=== PATIENT | male | born 1985 | race Caucasian/White ===

== ENCOUNTER 2020-06-11 00:05 | Inpatient (IN) | payer OTHER, SELFPAY ==
[~2020-06-11] VITALS: Ht 170.2 cm; Wt 68.0 kg
[2020-06-11 00:18] VITALS: BP 140/89
--- NOTE | 2020-06-11 00:20 | NUR ---
PT TAKEN TO BED 07 VIA [facility]. [place] [employer] AT BEDSIDE.
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
--- NOTE | 2020-06-11 01:00 | NUR ---
PT GIVEN A SANDWHICH AND JUICE
--- NOTE | 2020-06-11 01:15 | NUR ---
LAB AT BEDSIDE
--- NOTE | 2020-06-11 01:25 | NUR ---
UA COLLECTED AND GIVEN TO LAB
--- NOTE | 2020-06-11 01:30 | NUR ---
PT TAKEN TO CT VIA [facility]
[2020-06-11 01:39] LABS: BASOPHILS # (AUTO) 0.1 K/uL (0.00-0.22); BASOPHILS % (AUTO) 0.9 % (0.0-2.0); EOSINOPHILS # (AUTO) 0.3 K/uL (0-0.4); EOSINOPHILS % (AUTO) 2.5 % (0.0-4.0); HEMATOCRIT 42.1 % (36-52); HEMOGLOBIN 14.3 g/dL (12.0-18.0); LYMPHOCYTES # (AUTO) 1.4 K/uL (2.0-11.5); LYMPHOCYTES % (AUTO) 12.1 % (20.5-51.1); MEAN CORPUSCULAR HEMOGLOBIN 30 pg (27-31); MEAN CORPUSCULAR HGB CONC 34 g/dL (33-37); MEAN CORPUSCULAR VOLUME 87.2 fL (80-94); MONOCYTES # (AUTO) 1.1 K/uL (0.8-1.0); MONOCYTES % (AUTO) 9.6 % (1.7-9.3); NEUTROPHILS # (AUTO) 8.9 K/uL (1.8-7.7); NEUTROPHILS % (AUTO) 74.9 % (42.2-75.2); PLATELET COUNT (AUTO) 338 K/uL (140-450); RED BLOOD CELL COUNT(AUTO) 4.83 MIL/uL (4.20-6.10); RED CELL DISTRIBUTION WIDTH 14.7 % (11.6-13.7); WHITE BLOOD COUNT (AUTO) 11.9 K/uL (4.8-10.8)
--- NOTE | 2020-06-11 01:40 | NUR ---
CT RETURNED FROM CT VIA [facility]
[2020-06-11 01:41] LABS: APPEARANCE,URINE CLEAR (CLEAR); BILIRUBIN,URINE 1+ (NEGATIVE); BLOOD, URINE TRACE-L (NEGATIVE); COLOR,URINE YELLOW (YELLOW); LEUKOCYTE ESTERASE ,URINE NEGATIVE (NEGATIVE); NITRITE, URINE NEGATIVE (NEGATIVE); UGLUCOSE NEGATIVE (NEGATIVE)
--- NOTE | 2020-06-11 01:41 | NUR ---
EKG AT BEDSIDE
[2020-06-11 01:56] LABS: ALBUMIN 3.2 g/dL (3.4-5.0); ANION GAP 13.2 (8-16); ASPARTATE AMINOTRANSFERASE 30 U/L (15-37); CARBON DIOXIDE 29.5 mmol/L (21-32); CHLORIDE 103 mmol/L (98-107); CREATININE 0.8 mg/dL (0.6-1.3); GFR ARICAN-AMERICAN 141 mL/min (>90); GLUCOSE 120 mg/dL (74-106); POTASSIUM 3.7 mmol/L (3.5-5.1); SODIUM SERUM 142 mmol/L (136-145); TOTAL BILIRUBIN 0.3 mg/dL (0.0-1.0); UREA NITROGEN, BLOOD 14 mg/dL (7-18)
[2020-06-11 02:00] LABS: ACETAMINOPHEN < 0.5 ug/ml (10-30); SALICYLATE < 2.8 mg/dL (2.8-20.0)
[2020-06-11 02:03] LABS: BARBITURATE, URINE NEGATIVE ng/ml (NEG <=200); BENZODIAZEPINE, URINE NEGATIVE ng/mL (NEG <=200); CANNABINOID, URINE POSITIVE ng/mL (NEG <=50); COCAINE, URINE NEGATIVE ng/mL (NEG <=300); OPIATE, URINE NEGATIVE ng/mL (NEG <=2000); PHENCYCLIDINE SCREEN,URINE NEGATIVE ng/mL (NEG <=25)
[2020-06-11 02:09] LABS: WBC,URINE 0-5 /HPF (0-5)
--- NOTE | 2020-06-11 02:36 | NUR ---
[place] swab collected and sent to lab.
[2020-06-11] MEDS ORDERED: VANCOMYCIN 1,000 MG in DEXTROSE 5% 250 ML IV ONE (03:05)
[2020-06-11] MEDS ORDERED: PIPERACILLIN/TAZOBACTAM 3.375 GM in DEXTROSE 5% 50 ML IV ONE (03:05)
--- NOTE | 2020-06-11 03:15 | NUR ---
LEFT FOOT WOUND DISCOVERED WHEN REMOVING PTS SHOES. MAGGOTS INFESTING WOUND. ERMD MADE AWARE. FOOT CLEANED AND MAGGOTS REMOVED.
[2020-06-11] MEDS ORDERED: VANCOMYCIN PER PHARMACY MC PRN (03:30)
[2020-06-11] MEDS ORDERED: ONDANSETRON 4 MG/2 ML VIAL IVP PRN (03:30)
[2020-06-11] MEDS ORDERED: ACETAMINOPHEN 325 MG TAB PO PRN (03:30)
--- NOTE | 2020-06-11 03:30 | NUR ---
WOUND PHOTOS TAKEN
--- NOTE | 2020-06-11 03:40 | NUR ---
PT CLEANED AND CHANGED INTO A GOWN AND DIAPER.
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
--- NOTE | 2020-06-11 03:45 | NUR ---
RAD AT BEDSIDE
[2020-06-11] MEDS ORDERED: PIPERACILLIN/TAZOBACTAM 3.375 GM VIAL IV ONE (04:03)
[2020-06-11] MEDS ORDERED: VANCOMYCIN 1,000 MG VIAL ONE (04:09)
--- NOTE | 2020-06-11 04:24 | NUR ---
REPORT GIVEN TO BRYN OCAMPO IN [facility]ST UNIT.
--- NOTE | 2020-06-11 04:37 | NUR ---
Patient will be admitted to [facility]. Admited to MED SURG. Will go to room 109A. Belongings list completed. Report to BRYN OCAMPO.
--- NOTE | 2020-06-11 04:45 | NUR ---
PT TRANSFERRED FROM [facility] CAN TRANSFER SELF TO BED. PT IS AAOX4. RESPIRATIONS ARE EQUAL AND UNLABORED ON ROOM AIR. LUNG SOUNDS ARE CLEAR. ABD IS SOFT. BOWEL SOUNDS ARE ACTIVEX4. LBM 06/10. PT IS INCONTINENT. USES WHEELCHAIR BUT CAN MOVE ALL EXTREMITIES. PT WAS BROUGHT TO ER BY PD AND PLACED ON 5150 FOR GRAVELY DISABLED. PT DENIES ANY SI. DX CELLULITIS OF L FOOT. INITIALLY IN ER L FOOT HAD MX MAGGOTS. WOUND NOW CLEAN OPEN TO AIR. WOUND BED IS RED AND YELLOW WITH MINIMAL PURULENT DRAINAGE. L FOOT EDEMA PITTING +2 FROM TOES TO ANKLE. PER PT DENIES ANY INJURY BUT STATES, "I DID NOT REMOVE MY SHOES FOR A LONG TIME" MRSA SWAB OBTAINED. PT WAS CLEANED. IV ON L FA 20G VANCO CURRENTLY INFUSING PER ORDERS. ADMISSION QUESTIONS DONE BUT WAS LIMITED D/T PT MENTAL. PER REPORT WHEN PT IS D/C CALL PD AT [phone]. POC DISCUSSED WITH PT. ORIENTED TO ROOM AND STAFF. PT VERBALIZED UNDERSTANDING. WHEELCHAIR WITH SECURITY. WILL CONTINUE TO MONITOR.
[2020-06-11 05:00] VITALS: BP 149/70
--- NOTE | 2020-06-11 05:15 | NUR ---
PT IS SITTING UP EATING PUDDING AND DRINKING ORANGE JUICE. ALL NEEDS MET.
[2020-06-11] MEDS ORDERED: cefTRIAXone 1,000 MG VIAL ONE (05:58)
--- NOTE | 2020-06-11 07:30 | NUR ---
GAVE BEDSIDE REPORT TO DAY RN. PT ENDORSED IN STABLE CONDITION.
--- NOTE | 2020-06-11 07:35 | NUR ---
RECEIVED BEDSIDE REPORT FROM NIGHTSHIFT NURSE. PT RESTING IN BED. ABLE TO MAKE NEEDS KNOWN. RESPIRATIONS EVEN AND UNLABORED WITH NO SOB OR RESPIRATORY DISTRESS. SKIN WARM AND DRY TO TOUCH. IV SITE IN LFA 20G IS CLEAN, DRY, AND INTACT.
[2020-06-11 08:00] VITALS: BP 140/72
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
[2020-06-11] MEDS: ENOXAPARIN 40 MG/0.4 ML SYR SUBQ SCH (09:00)
[2020-06-11] MEDS ORDERED: VANCOMYCIN 1GM/DEXT 5% PREMIX 200 ML IV SCH (09:00)
--- NOTE | 2020-06-11 09:20 | NUR ---
DISCHARGE PLANNING: THIS IS A 35 Y/O MALE PATIENT FROM HOME, WHO WAS BROUGHT IN BY PD ON A 5150 HOLD. NO SIGNIFICANT PAST MEDICAL HISTORY. INITIAL DIAGNOSIS OF LEG CELLULITIS, 5150 HOLD. CURRENT LABS INCLUDE WBC 11.9, H/H 14.3/42.1, NA/K 142/3.7, BUN/CREA 14/0.8. RAPID COVID TEST NEGATIVE. UDS SHOWED POSITIVE FOR CANNABINOIDS. FOOT X RAY SHOWED MEDIAL TUFT FRACURE OF THE 1ST DISTAL PHALANX WITH ADJACENT TISSUE DEFORMITY. HEAD CT NEGATIVE. NOT SEEN BY ATTENDING YET. TENTATIVE DC PLAN PENDING ON PATIENT'S RESPONSE TO TREATMENT. Addendum: 06/11/20 at 1058 by Shua Ivory RECEIVED A CALL FROM ERVIN [phone] OF [facility] OFFICE, STATING THAT PATIENT SHOULD NOT BE PLACED ON A 5150HOLD DUE TO PATIENT IS AN LPS CONSERVATEE AND THEY ARE THE ONLY ONES WHO CAN SAY IF THE PATIENT NEEDS TO BE ADMITTED OR NOT. SHE ALSO MENTIONED THAT THE PATIENT AWOL FROM [facility] 3 WEEKS AGO AND WANTS THE PATIENT TO GO BACK THERE. SHE REQUESTED TO BE TRANSFERRED TO SW. MATA OF [facility] MADE AWARE. SHE PROVIDED ME WITH TRANSPORT AUTH [id number]. Addendum: 06/11/20 at 1243 by Suha Ivory CM RECEIVED A CALL FROM ROGER CHARGE NURSE STATING THE PER DR. SON, PATIENT IS MEDICALLY CLEARED. GAURI BOWER AWAKE. RECEIVED REPORT FROM GAURI RODRIGUEZ STATING THAT PER [facility], PATIENT IS NOT FROM THERE BUT [facility]. GAURI RODRIGUEZ CONTACTED [facility] TRANSFER AND FAXED CLINICALS. RECEIVED A CALL FROM BETTY YADKIN [facility] TRANSFER [facility], TO GATHER MORE INFORMATION. PROVIDED ALL INFORMATION NEEDED. PROVIDED HER OF [employer] PHONE NUMBER TO FOLLOW UP. SHE ALSO STATED THAT SHE WILL REACH OUT TO PUBLIC GUARDIAN'S OFFICE. T[facility] [employer] MADE AWARE. Addendum: 06/11/20 at 1349 by Crystal Jarvis CM [place]: SET UP WILL CALL TRANSPORTATION WITH [facility] [phone]. Addendum: 06/11/20 at 1354 by Crystal Jarvis DC GRAB JACK MAN: NOTIFIED [employer] THAT TRANSPORTATION IS ON WILL CALL. Addendum: 06/12/20 at 0940 by Yi Hare DC PLANNING: CALLED [facility] TRANSFER [place] [phone] SPOKE WITH WYATT STATED THEY HAVE NO BED ,ON LEVLE 2 AND ONCE THEY HAVE A BED WILL CALL BACK. PROVIDE MY NUMBER AND THE UNIT NUMBER CM TO FOLLOW. Addendum: 06/14/20 at 0918 by Suha Ivory CONTACTED [facility], ABLE TO SPEAK TO VICK. PER VICK, THEY ARE STILL ON LEVEL 2 AND NO BEDS AVAILABLE AT THIS TIME. WILL FOLLOW UP. Addendum: 06/14/20 at 0925 by Rodriguez Orr SS GAURI CONTACTED ADEBAYO MCPHERSON FROM [facility] [phone] REGARDING DISCHARGE PLAN FOR PATIENT. PER ADEBAYO, PATIENT NEEDS TO RETURN TO [facility] [place]. GAURI INFORMED ADEBAYO THAT THERE HAS BEEN NO BED AVAILABILITY FOR PATIENT AT [facility] SINCE SUNDAY. ADEBAYO STATED THAT PATIENT CAN BE DISCHARGED TO [facility]. GAURI WILL FOLLOW UP. Addendum: 06/14/20 at 1054 by Suha Ivoyr CONTACTED [facility] AT [phone], ABLE TO SPEAK TO DIANA TURF FARMER. PER DIANA THEY DO NOT HAVE ANY MED SURG BEDS AT THIS TIME AND IS SHORT STAFF FOR [facility]. HE STATED TO CHECK BACK AGAIN TOMORROW. ALANNA ORTIZ CAN SEND REFERRAL TO [phone]. INQUIRY SENT TO THE PROVIDED FAX NUMBER. Addendum: 06/14/20 at 1133 by Suha Ivory CM ADOLFO OF [facility] MADE AWARE THAT [facility] AND [facility] DOES NOT HAVE ANY BED AVAILABILITY AT THIS TIME. I ALSO INFORMED HER THAT THESE ARE THE ONLY 2 FACILITIES THAT THE CONSERVATOR WANTS THE PATIENT TO GO. INFORMED ADLOFO THAT WE DO NOT WANT TO BE STUCK WITH THE PATIENT BECAUSE OF PLACEMENT. I ALSO INFORMED HER THAT ALANNA FIORE 5150 IS NOT VALID. SHE STATED SHE WILL REACH OUT TO DR. SON FOR PSYCHE CONSULT AND WILL GO FROM THERE. GAURI RODRIGUEZ MADE AWARE. Addendum: 06/14/20 at 1134 by Suha Ivory CM CONTACTED ADEBAYO [facility] OFFICE, NO ANSWER. LEFT MESSAGE. Addendum: 06/14/20 at 1152 by Suha Ivory CM CONTACTED [facility] AT [phone], ABLE TO SPEAK JATIN. PER JATIN, NO MALE BEDS AT THIS TIME. CONTACTED [facility] AT [phone], ABLE TO SPEAK TO LANNY. NO MALE BEDS AVAILABLE AT THIS TIME. Addendum: 06/14/20 at 1337 by Yi Hare CM DC PLANNING: SPOKE WITH AMERICA MONTANO PSYCH EVANGELIST AND NOTIFIED DR VERA. DR VERA WILL SEE PATIENT TONIGHT. TO FOLLOW Addendum: 06/15/20 at 1240 by Suha Ivory CM PER ADOLFO [facility], PATIENT WAS AT [facility] [phone] BEFORE. Addendum: 06/16/20 at 1641 by Suha Ivory CM PER DR. VERA, HE WILL BE HERE TONIGHT AFTER CLINIC TO SEE THE PATIENT. PRIMARY RN AND TURF FARMER MADE AWARE. Addendum: 06/17/20 at 1215 by Suha Ivory CONTACTED [facility] AT [phone], ABLE TO SPEAK TO VIDYA ROSADO. SHE CONFIRMED THAT PATIENT WAS WITH THEM UNTIL MAY 14, 2020 AND WAS TRANSFERRED TO [facility]. PER VIDYA THEY ARE NOT ABLE TO ACCEPT PATIENT BACK DUE TO HIS BEHAVIOR IS NOT APPROPRIATE FOR THEM. Addendum: 06/17/20 at 1308 by Rodriguez Orr SS GAURI CONTACTED JIMMY FROM [facility] [phone]. PER PSYCH CONSULT, 7430 IS NOT NECESSARY DUE TO LPS CONSERVATORSHIP. GAURI FAXED CLINICAL PACKET TO JIMMY [phone]. GAURI CONTACTED SEAMUS FROM [facility] [phone] WHO REFERRED SW TO JIMMY [phone] BUT VOICEMAIL BOX IS NOT SET UP. FAX FACE SHEET STATED THAT IT WAS RECEIVED AT 1244. Addendum: 06/17/20 at 1310 by Rodriguez Orr JIMMY RECEIVED CLINICALS AND CONTACTED TO INFORM THAT THEY WERE RECEIVED. SHE STATED SHE WILL INFORM IF PATIENT IS ACCEPTED. Addendum: 06/18/20 at 1025 by Rodriguez Orr GAURI CONTACTED JIMMY FROM [facility] [phone] REGARDING PROGRESS OF PSYCH PLACEMENT. JIMMY HAD ADDITIONAL QUESTIONS REGARDING PATIENT. GAURI CONTACTED PUBLIC GUARDIAN AND SPOKE TO ABRAN [phone]. PER ABRAN, PATIENT WAS AT [facility] SNF - LOCKED FACILITY PRIOR TO [facility]. ABRAN STATED THAT PATIENT WAS IN A BOARD AND CARE PRIOR TO SNF. GAURI CONTACTED JIMMY FROM [facility] TO INFORM HER OF THIS INFORMATION. JIMMY STATED THAT [facility] WAS REVIEWING PATIENT'S CHART, BUT DUE TO PATIENT'S INSURANCE, HIS DISCHARGE WOULD BE DIFFICULT BECAUSE HE WOULD BE IN [facility]. JIMMY STATED THAT SHE WILL CONTINUE TO SEEK PLACEMENT FOR PATIENT IN [facility]. Addendum: 06/18/20 at 1226 by Suha Ivory CM CONTACTED [facility] AT [phone], ABLE TO SPEAK TO MONROE ALONSO. SHE STATED SHE WILL TRANSFER ME TO THE [facility]URF [facility]ER. PER JOSE ANTONIO [facility], THEY ARE AT [facility] AT THIS TIME. Addendum: 06/21/20 at 0844 by Rodriguez Orr SS GUARI CONTACTED [facility] [phone] AND SPOKE TO NIELS REGARDING LACK OF DOCUMENTATION FROM [facility]. PER NIELS, SHE WILL CONSULT WITH JIMMY REGARDING LACK OF DOCUMENTATION AND PROGRESS OF PSYCH PLACEMENT SEARCH. NIELS STATED SHE WILL FOLLOW UP WITH GAURI. Addendum: 06/21/20 at 1149 by Suha Ivory CM RECEIVED A MESSAGE FROM LANDY OF [facility], INQUIRING IF WE ARE STILL SEEKING PLACEMENT. RETURNED HER CALL. PER LANDY, THEY REMAIN ST [facility] AT THIS TIME AND WILL CALL ME BACK AGAIN AT 1300 TO CARLIN UPDATE ON BED AVAILABILITY. Addendum: 06/21/20 at 1239 by Rodriguez Orr SS GAURI WAS CONTACTED BY ADOLFO FROM [facility]. PER ADOLFO, SHE SPOKE TO PUBLIC GUARDIAN - ADEBAYO MCPHERSON. PER ADEBAYO, PATIENT CAN ONLY BE TRANSFERRED TO [facility], [facility], AND [facility]. GAURI CONTACTED [facility] AND INFORMED ROBERTA. MARQUEZ STATED THAT THE FOLLOWING FACILITIES HAVE ALL HAVE HAD LIMITED BED AVAILABILITY BUT SHE WILL CONTINUE TO SEEK PLACEMENT FOR PATIENT. GAURI WILL FOLLOW UP NEEDED. Addendum: 06/22/20 at 1024 by Crystal Jarvis CM [place]: FAXED PATIENTS CLINICALS TO [facility] Addendum: 06/22/20 at 1051 by Suha Ivory 0915: CONTACTED [facility] AT [phone] TO FOLLOW UP WITH PLACEMENT AND NOTES, NO ANSWER, WENT TO JIMMY'S VOICEMAIL. HOWEVER, UNABLE TO LEAVE MESSAGE, [email or web address] IS FULL. CONTACTED [facility] AT [phone], ABLE TO SPEAK TO SHALINI. PER SHALINI THEY ARE STILL AT [place] AND NO BED AVAILABLE YET. PER SHALINI SHE WILL CALL ME BACK AT 1100 FOR UPDATES. CONTACTED [facility] AT [phone], ABLE TO SPEAK TO RAFY. NO BED AVAILABLE YET AT THIS TIME. PER JOHN OF [facility] AT [phone], THEY DO NOT KEEP PACKET. WE HAVE TO SEND IT ON A DAILY BASIS TO [phone]. NO BEDS AVAILABLE YET OF THIS TIME. Addendum: 06/22/20 at 1325 by Rodriguez MORALES SW CONTACTED [facility] REGARDING LACK OF DOCUMENTATION. GAURI LEFT VM WITH JIMMY WITH [facility] [phone]. Addendum: 06/23/20 at 0844 by Suha Ivory RECEIVED A CALL FROM CHARGE NURSE ROGER, STATING THAT [facility] INFORMED THEM OF BED AVAILABILITY. CONTACTED [facility] [phone], ABLE TO SPEAK TO JOAQUÍN. PER JOAQUÍN THEY HAVE BED AVAILABILITY AND JUST WAITING FOR THEIR DOC TO CALL THEM BACK TO ACCEPT AND HAVE HIM CONNECT WITH DR. ISAAC AND WILL GO FROM THERE. Addendum: 06/23/20 at 0848 by Rodriguez Orr GAURI CONTACTED [facility] AND SPOKE TO JAIDEN. PER JAIDEN, BED IS STILL AVAILABLE, BUT SHE IS WAITING ON DR. WHITLOCK TO SPEAK TO DR. ISAAC ON WHETHER PATIENT WILL BE ACCEPTED. GAURI WILL FOLLOW UP NEEDED. Addendum: 06/23/20 at 1135 by Rodriguez Orr GAURI RECEIVED A PHONE CALL FROM BREEZY FROM [facility] [phone]. BREEZY REQUESTED CLINICAL PACKET TO BE SENT TO [facility] AND PROVIDED FAX # [phone]. GAURI RECEIVED PHONE CALL FROM JIMMY FROM [facility]. PER JIMMY, SHE WILL CONTACT [facility] REGARDING PSYCH PLACEMENT. Addendum: 06/23/20 at 1354 by Suha Ivory CM RECEIVED THE SMART MEDICAL CLEARANCE FORM FROM [facility]. FILLED IT OUT, HOWEVER NEEDING SIGNATURE FROM DR. ISAAC. CONTACTED [facility] IF I WILL BE ABLE TO SIGN THE FORM, ABLE TO SPEAK TO BREEZY. PER BREEZY, IT HAS TO BE THE MD THAT NEEDS TO SIGN THE FORM. INFORMED HIM THAT THE ATTENDING LEFT ALREADY FOR THE DAY AND NO DOCTOR IS ABLE TO SIGN IT. DR. ISAAC MADE AWARE. HE STATED HE WILL TRY TO COME BACK TO SIGN THE FORM. WILL FOLLOW UP. Addendum: 06/23/20 at 1402 by Suha Ivory CM PER DR. ISAAC TO FAX THE FORM TO [phone], SO HE CAN SIGN IT AND SEND IT BACK. SMART FORM FAXED TO THE PROVIDED NUMBER. WILL FOLLOW UP. Addendum: 06/23/20 at 1420 by Suha Ivory RECEIVED THE SIGNED SMART FORM BACK FROM DR. ISAAC. SMART FORM SENT TO [facility] AT [phone]. WILL FOLLOW UP. Addendum: 06/23/20 at 1617 by Rodriguez Orr SS GAURI FAXED CONSERVATORSHIP PAPERWORK TO [facility] [phone]. GAURI CONTACTED [facility] AND SPOKE TO NIELS WHO STATED SHE RECEIVED CONSERVZOGOtennis DOCUMENTS. NIELS STATED SHE WOULD CONTACT NURSING STATION WITH AVAILABLE BED AND ACCEPTING PHYSICIAN. GAURI PROVIDED NURSING STATION PHONE NUMBER [phone]. Addendum: 06/23/20 at 1625 by Crystal Jarvis CM [place]: TRANSPORTATION AUTH [id number] Addendum: 06/23/20 at 1632 by Crystal Jarvis CM [place]: SET UP TRANSPORTATION ON WILL CALL WITH EDUARD [phone] Addendum: 06/24/20 at 0916 by Suha Ivory CM CONTACTED [facility], ABLE TO SPEAK TO NIELS. PER NIELS, THEY CALLED LAST NIGHT TO FOLLOW UP IF THE PATIENT IS AMBULATORY AND THE NURSE TOLD THEM THAT SHE IS UNABLE TO ASSESS THE PATIENT DUE TO PATIENT WAS SEXUALLY PROVOCATIVE LAST NIGHT. SHE STATED THAT THEIR CRITERIA TO ADMIT THE PATIENT IS PATIENT SHOULD BE AMBULATORY WITH NO ASSISTIVE DEVICE. CONTACTED [facility] AT [phone] TO FOLLOW UP, NO ANSWER. WILL FOLLOW UP. CONTACTED [facility], ABLE TO SPEAK TO SKY. PER SKY, THEY NEED THE NEW PACKET AGAIN. UPDATED CLINICALS SENT TO [phone]. WILL FOLLOW UP. DR. ISAAC MADE AWARE AND I REQUESTED FOR PT EVALUATION. PER DR. ISAAC OK TO PUT THE ORDER IN. PT EVAL ORDER TRANSCRIBED. ADOLFO OF [facility] MADE AWARE. SHE STATED THEY WILL PROVIDE US WITH ADMIN DAYS. CONTACTED [facility]. PER MADISON, THEY ARE NOT REVIEWING ANY REFERRALS AT THIS TIME BECAUSE THEY ARE SATURATED. Addendum: 06/24/20 at 0920 by Rodriguez Orr SS GAURI CONTACTED [facility]DEBA[facility]O MCPHERSON [facility] [phone] REGARDING DISCHARGE PLAN. GAURI LEFT VM TO ADEBAYO. GAURI WILL FOLLOW UP. Addendum: 06/24/20 at 1213 by Crystal Jarvis CM DC GRAB JACK MAN: FAXED PATIENTS CLINICALS TO [facility], [facility], AND [facility]. Addendum: 06/24/20 at 1500 by Suha Ivory CM LATE ENTRY: CONTACTED ADEBAYO FROM PUBLIC [facility] OFFICE, ABLE TO SPEAK TO BETHANY. PER BETHANY FIORE IS NOT AVAILABLE AT THIS TIME BUT CAN RELAY THE MESSAGE. INFORMED BETHANY THAT WE EXHAUSTED ALL THE FACILITIES THAT ADEBAYO PROVIDED US AND I WANT TO KNOW IF SHE HAS ANY OTHER RECOMMENDATIONS FOR PLACEMENT. ADOLFO OF [facility] MADE AWARE THAT PT SAW THE PATIENT AND IS MODERATE TO MAX ASSIST FROM BED TO SITTING AND ZERO AMBULATION. WE DISCUSSED OTHER OPTIONS LIKE SNF LOCKED UNIT. SHE STATED WE CAN SEND REFERRAL TO [facility], [facility] AND [facility]. PER TOMASA OF [facility], PATIENT IS TOO YOUNG FOR THEIR LOCKED UNIT. BUT WILL HAVE HER DON REVIEW THE REFERRAL AND GET BACK TO US. PER MIAN OF [facility], THEY DID NOT RECEIVE THE REFERRAL YET. SHE PROVIDED ME WITH ANOTHER FAX NUMBER [phone]. REFERRAL SENT TO THE PROVIDED NUMBER. WILL FOLLOW UP. PER REGGIE OF [facility], HE WILL REVIEW THE REFERRAL AND WILL GET BACK TO US. WILL FOLLOW UP. Addendum: 06/24/20 at 1501 by Suha Ivory RECEIVED A CALL BACK FROM [facility], STATING THAT THEIR DON HAVE TO DECLINE THE REFERRAL DUE TO THE AGE. Addendum: 06/24/20 at 1518 by Suha Ivory PER [facility], THEY RECEIVED THE PACKET AND THEIR DON IS REVIEWING IT AT THIS TIME. WILL FOLLOW UP. PER RASHAWN DAV[facility], THEY HAVE A LOCKED UNIT AND IS CONTRACTED WITH [facility] WELL. REFERRAL SENT TO SAMANTHA [facility]. WILL FOLLOW UP. PER ADIN BAUTISTA, THEY DO NOT HAVE A LOCKED UNIT. Addendum: 06/24/20 at 1535 by Suha Ivory CM PER [facility] [phone] THEY HAVE A LOCKED UNIT AND 1 OPEN BED AT THIS TIME. SHE ALSO STATED THAT THEY ARE CONTRACTED WITH [facility]. SHE STATED TO SEND REFERRAL TO [phone]. CONTACTED [facility] AT [phone], NO ANSWER. LEFT MESSAGE. WILL FOLLOW UP. PER THERESA, THEY ARE NOT ABLE TO ACCEPT THE PATIENT DUE TO THE COVID REGULATIONS THAT PATIENT NEEDS TO BE PLACED IN THE OBSERVATION AREA AND WOULD NEED A SITTER 24 HOURS FOR 14 DAYS. Addendum: 06/24/20 at 1613 by Suha Ivory CM ADOLFO BALDWIN [facility] UPDATED THAT IVR, [facility] ARE NOT ABLE TO ACCEPT PATIENT. SHE STATED THEY THEY ARE WILLING TO PAY STIPEND. PER RASHAWN DAVIS, STATED THAT THEY ARE NOT ABLE TO TAKE THE PATIENT. NIELS OF [facility] TRANSFER CENTER UPDATED THAT PATIENT IS MODERATE TO MAX ASSIST PER PT'S EVALUATION. SHE STATED SHE WILL FOLLOW UP WITH ME AGAIN TOMORROW IF THERE WILL BE ANY CHANGES. CONTACTED SUGEY OF [facility] TO FOLLOW UP REFERRAL. PER SUGEY, THEY ARE NOT ABLE TO ACCEPT THE PATIENT DUE TO HIS AGE. I INFORMED HER THAT [facility] IS WILLING TO PAY STIPEND. PER SUGEY THEY TRY NOT TO ACCEPT PATIENT'S THAT ARE UNDER 50 YEARS OLD. WILL FOLLOW UP. Addendum: 06/24/20 at 1617 by Rodriguez Orr GAURI CONTACTED ADEBAYO MCPHERSON FROM [facility] OFFICE. SW WAS TRANSFERRED TO [employer] [facility] OF [facility]. GAURI LEFT VM REGARDING MULTIPLE VOICEMAILS THAT WERE LEFT TO [facility] AND HOW SHE HAS NOT RETURNED ANY PHONE CALLS. GAURI WILL FOLLOW UP WITH [facility] AT A LATER TIME. Addendum: 06/24/20 at 1623 by Suha Ivroy CM ADOLFO OF [facility] MADE AWARE THAT NO SNF IS ABLE TO ACCEPT PATIENT AT THIS TIME. SHE STATED SHE WILL REACH TO THEIR HARD PLACEMENT TEAM TOMORROW. WILL FOLLOW UP. Addendum: 06/24/20 at 1629 by Suha Ivory CM PER [facility], HER DON IS STILL REVIEWING THE REFERRAL. WILL FOLLOW UP. Addendum: 06/25/20 at 0916 by Suha Ivory CM PER [facility], THEIR DON DECLINED THE CASE DUE TO NO OBSERVATION UNIT IN THEIR SECURED UNIT. ADOLFO BALDWIN [facility] MADE AWARE. CONTACTED LUIS WATKINS TO REEVALUATE PATIENT TODAY. Addendum: 06/25/20 at 0929 by Rodriguez Orr GAURI CONTACTED [facility] [phone] AND SPOKE TO JAY. GAURI REQUESTED TO SPEAK TO ADEBAYO AND JAY TRANSFERRED SW TO [facility]. GAURI CONTACTED PUBLIC GUARDIAN ONCE MORE AND REQUESTED TO SPEAK TO SOMEONE ELSE REGARDING PATIENT'S CASE. PER JAY, BECAUSE ADEBAYO IS IN THE OFFICE, NO ONE ELSE WOULD BE ABLE TO TAKE OVER CASE. GAURI LEFT VERBAL MESSAGE WITH JAY WHO STATED SHE WOULD INFORM ADEBAYO THAT MULTIPLE LOCKED SNFS HAD REFUSED PATIENT DUE TO PATIENT'S AGE OR BEHAVIOR, AND THAT PATIENT IS UNCOOPERATIVE WITH PT. GAURI LEFT CALL BACK NUMBER FOR JAY TO PROVIDE SHELBYJOSUÉ. Addendum: 06/25/20 at 1444 by Suha Ivory LATE ENTRY: ADOLFO OF [facility] MADE AWARE THAT WE EXHAUSTED ALL OUR LOCKED UNIT RESOURCES. SHE STTATED SHE WILL SEND AN EMAIL TO THEIR HARD PLACEMENT TEAM. PER ADOLFO, SHE WILL SEND ME A COPY OF PATIENT'S PREVIOUS PSYCHE MEDS. DR. VERA MADE AWARE THAT PATIENT IS NOT ON ANY PSYCHE MEDS AT THIS TIME. HE STATED THAT HE DID NOT START THE PATIENT ON ANY BECAUSE HE WAS THOUGHT WE WILL HAVE A HARD TIME PLACING THE PATIENT AND PATIENT REFUSED PSYCHE MEDS. INFORMED HIM THAT SUPPOSEDLY [facility] HAD A BED BUT PATIENT IS NOT INDEPENDENTLY AMBULATING. AND WE EXHAUSTED EVEN THE SNF LOCKED UNIT. HE RECOMMENDED TO REACH OUT TO [facility] IN [place]. INFORMED HIM THAT I HAVE TO DISCUSS IT WITH THE CONSERVATOR. RECEIVED THE COPY OF MEDICATION LISTS FROM ADOLFO, COPY PROVIDED TO DR. VERA. PER DR. VERA HE WILL SEE THE PATIENT AND WILL ADD SOME MEDICATIONS. FINALLY ABLE TO GET A HOLD OF ADEBAYO FROM [facility] OFFICE. INFORMED HER THAT WE EXHAUSTED ALL OUR RESOURCES AT THIS TIME AND IF SHE HAVE ANY OTHER RECOMMENDATIONS. SHE STATED ANY LOCKED PSYCHE FACILITIES IS OK. I ASKED HER IF WHAT IS THE DC PLAN AFTER PSYCHE FACILITY, SHE STATED THERE IS NO PLAN. INFORMED HER THAT IS THE REASON WHY OTHER FACILITIES ARE NOT ABLE TO ACCEPT THE PATIENT. SHE STATED TO SEND THE PATIENT TO ANY ACCEPTING PSYCHE LOCKED UNIT AND TO LET THEM KNOW WHERE. RHYS OF [facility] MADE AWARE. HE REQUESTED TO FAX THEM UPDATED CLINICALS. GAURI MADE AWARE. Addendum: 06/25/20 at 1549 by Rodriguez MORALES GAURI FAXED CLINICALS TO [facility]. GAURI CONTACTED [facility] [phone] AND SPOKE TO RHYS. PER RHYS, UPDATED CLINICALS WERE RECEIVED. GAURI STATED THAT PUBLIC GUARDIAN STATED THAT [facility] CAN EXPAND THEIR SEARCH TO ALL PSYCHIATRIC FACILITIES. RHYS STATED THAT HE WOULD BEGIN SEEKING PLACEMENT AND WILL DOCUMENT IN CHART FACILITIES THAT [facility] HAS FAXED TO. Addendum: 06/27/20 at 1316 by Rodriguez Orr GAURI CONTACTED JIMMY FROM [facility] [phone] REGARDING LACK OF DOCUMENTATION FOR PSYCH PLACEMENT FOR PATIENT. JIMMY STATED THAT SHE WILL CONTACT [facility] AND WILL ASK WHY THERE HAS BEEN NO DOCUMENTATION FOR PREVIOUS TWO DAYS. JIMMY STATED SHE WOULD FOLLOW UP WITH GAURI. Addendum: 06/27/20 at 1509 by Rodriguez Orr GAURI CONTACTED JIMMY FROM [facility] [phone]. PER JIMMY, SHE CONTACTED NIELS TO INPUT DOCUMENTATION. Addendum: 06/28/20 at 1614 by Rodriguez MORALES GAURI WAS CONTACTED BY [facility]O [facility]. PER ADEBAYO, [facility] HAS AN OPEN BED. GAURI CONTACTED [facility] AND SPOKE TO PATSY [phone]. PATSY REQUESTED CLINICALS BE FAXED TO [phone]. GAURI WAS CONTACTED BY MIGNON, CAMPAIGN ANALYST FROM [employer] [facility] [phone]. MIGNON STATED THAT CLINICALS ARE BEING REVIEWED AND SHE WILL CONTACT GAURI. MIGNON STATED THAT SHE WILL HAVE AN ANSWER BY 5PM. GAURI INFORMED HER THAT GAURI WILL NOT BE IN THE OFFICE AT THAT TIME AND PROVIDED NURSING STATION [phone] PHONE NUMBER TO MIGNON. MIGNON PROVIDED HER DIRECT LINE [phone] TO FOLLOW UP TOMORROW IF [facility] IS NOT ABLE TO TAKE PATIENT. GAURI WILL FOLLOW UP NEEDED. Addendum: 06/29/20 at 0835 by Rodriguez Orr SS GAURI CONTACTED MASON FROM [facility] REGARDING PSYCHIATRIC PLACEMENT FOR PATIENT. PER MASON, OF 4:00AM, THERE WERE NO AVAILABLE BEDS. MASON STATED SHE WOULD CHECK AGAIN AT 9:00AM AND CONTACT GAURI. GAURI ALSO CONTACTED RHYS FROM [facility] [phone] TO SEE IF THERE WAS ANY PROGRESS IN PSYCH PLACEMENT FOR PATIENT. RHYS STATED HE WOULD DOCUMENT ALL FACILITIES THAT HE HAS FAXED CLINICALS TO. RHYS ALSO ASKED IF [facility] WAS ACCEPTABLE FOR PATIENT TO BE TRANSFERRED TO. GAURI STATED THAT [facility] WOULD BE ACCEPTABLE. RHYS STATED HE WOULD FOLLOW UP AND CONTACT GAURI. Addendum: 06/29/20 at 1625 by Rodriguez Orr SS GAURI WAS CONTACTED BY [facility]. PER JAIDEN, ACCEPTING PHYSICIAN IS DR. MADRIGAL. JAIDEN STATED FOR NURSE TO GIVE REPORT TO [phone] AND BED WILL BE GIVEN. CHARGE NURSE NATALIA WAS NOTIFIED. GAURI ARRANGED WILL CALL FOR TRANSPORTATION THROUGH [facility]. Addendum: 06/29/20 at 1636 by Crystal Jarvis CM [place]: SPOKE TO CHEY AT [facility]. SET UP WILL CALL TRANSPORTATION. Addendum: 06/30/20 at 0939 by Rodriguez Orr SS GAURI CONTACTED JAIDEN FROM [facility] TRANSFER [place]. JAIDEN ASKED IF PATIENT WAS AMBULATING. GAURI FAXED PT EVALUATION TO [phone]. PER JAIDEN, THERE IS NO BEDS AVAILABLE AND SHE WILL CONTACT AT 1100. GAURI ALSO RECEIVED A VOICEMAIL FROM [facility] FROM [facility] SAYING THAT SHE SPOKE TO [facility] AND SHE IS UNABLE TO ACCEPT PATIENT. GAURI CONTACTED [facility] [phone]. PER ADEBAYO SHE SPOKE TO [facility] FROM [place] AND STATED THAT PATIENT WAS ABLE TO GO TO [place]. GAURI CLARIFIED WITH ADEBAYO THAT PATIENT CAN GO TO ANY FACILITY, REGARDLESS OF COUNTY. ADEBAYO CLARIFIED THAT PATIENT CAN GO TO ANY FACILITY THAT IS ACCEPTING PATIENT. ADEBAYO STATED THAT SHE IS GOING OUT OF TOWN TOMORROW UNTIL AFTER [place] SO GAURI WILL HAVE TO CONTINUE CASE WITH SOMEONE ELSE AFTER TODAY. GAURI STATED HE WILL CONTACT ADEBAYO IF ANY UPDATED INFORMATION IS RECEIVED. GAURI WILL FOLLOW UP WITH [facility] AT 1100. Addendum: 06/30/20 at 1409 by Rodriguez Orr GAURI CONTACTED [facility] AND SPOKE TO JAIDEN [phone]. PER JAIDEN, THERE IS NO BED AVAILABILITY AT [facility], AND NEXT CHECK WILL BE AT 4PM. GAURI CONTACTED PUBLIC GUARDIAN AND SPOKE TO ADEBAYO FOR UPDATE [phone]. ADEBAYO VERBALIZED UNDERSTANDING. Addendum: 06/30/20 at 1621 by Rodriguez Orr GAURI WAS CONTACTED BY RHYS FROM [facility]. RHYS ASKED IF CONSERVATOR WOULD BE AGREEABLE TO PATIENT BEING DISCHARGED TO [facility]. GAURI INFORMED HIM THAT PER ADEBAYO, ANY PSYCHIATRIC PLACEMENT WOULD BE ACCEPTABLE. RHYS STATED THAT HE WILL CALL [facility] BACK WITH ROOM NUMBER AND ACCEPTING PHYSICIAN. RHYS STATED HE WOULD CONTACT NURSING STATION WITH INFORMATION IF HE RECEIVES ROOM NUMBER AND ACCEPTING PHYSICIAN PASSED 430. Addendum: 07/01/20 at 0902 by Rodriguez MORALES GAURI CONTACTED [facility] AND CALLED NIELS [phone] TO FOLLOW UP WITH TRANSFER. PER NIELS SHE WILL FOLLOW UP WITH [facility] REGARDING PSYCH TRANSFER. Addendum: 07/01/20 at 1138 by Rodriguez MORALES GAURI WAS CONTACTED BY NIELS FROM [facility] REGARDING [facility] ACCEPTING PATIENT. PER NIELS, PATIENT WILL BE ACCEPTED UNDER DR. HAGER IN BEHAVIORAL HEALTH UNIT. DEANNA FROM PUBLIC [facility] WAS MADE AWARE. NURSE REPORT CAN BE GIVEN TO [phone]. BRYN HANLEY WAS NOTIFIED.
--- NOTE | 2020-06-11 09:33 | NUR ---
PT REFUSED SQ LOVENOX INJECTION. PT STATED, "I'M FINE. LET ME SLEEP." EDUCATED PATIENT ON MEDICATION PURPOSE. PT STILL INSISTED ON SLEEPING AND NOT RECEIVING MEDICATION. SAFETY MEASURES IN PLACE. WILL CONTINUE TO MONITOR
--- NOTE | 2020-06-11 10:41 | NUR ---
SOCIAL WORK NOTE: Patient's Orientation Unable To Assess Information Provided By ADEBAYO MCPHERSON - [facility] Comments SW WAS UNABLE TO MEET PATIENT AT BEDSIDE TO COMPLETE ASSESSMENT. SW WAS CONTACTED BY ADEBAYO FROM [facility]. PER ADEBAYO, PATIENT ELOPED FROM [facility] ON 05/16/2020 AND WAS WITHOUT MEDICATION FOR 3 WEEKS. Pharmaceutical Specialty Representative, Realtionship and Phone Number ADEBAYO MCPHERSON [facility] [phone] Healthcare Power of Global Marketing Intern Yes Does Patient Have a POLST No Identifying Problems Mental Health Power Of Global Marketing Intern Is A Social Work Consult Needed No Mandate Report Filed No Explanation Of Identifying Problems PATIENT IS A 33-YEAR-OLD MALE ADMITTED FOR LEG CELLULITIS AND 5150 GRAVELY DISABLED. PATIENT HAS NO REPORTED TO [facility]. PER ADEBAYO FROM [facility], PATIENT'S 5150 IS NOT VALID DUE TO PUBLIC GUARDIANSHIP. PER ADEBAYO, PATIENT STATED THAT SHE WOULD FAX CONSENTS TO CASE MANAGEMENT. Admitted From STREET Pre-Admission Level Of Functioning Status Assist With ADL Level Of Functioning Comment PER KELLEE, PATIENT IS UNDER PUBLIC GUARDIANSHIP DUE TO MENTAL CONDITION. Prior Resources/Services Used In Last 12 Months Psychiatry Services Dialysis Comments N/A Financial Issues No Known Financial Issue Referral To The Financial Counselor Needed No Factors/Needs Guardian/Conservtr Issues Explanation And Or Other Factors Affecting/Possible DC Needs PER KELLEE, PATIENT SHOULD BE DISCHARGED TO SNF OR BACK TO [facility] WHERE HE ELOPED FROM. GAURI INFORMED CUSTOM CAR BUILDER. Pt/Rep Participated In Discharge Plan Yes Patient/Family Agress With Discharge Plan Yes Discharge Plan Comments TENTATIVE DISCHARGE PLAN IS FOR PATIENT TO BE DISCHARGED TO [facility]. DC Plan Status Initiated Addendum: 06/11/20 at 1117 by Rodriguez MORALES GAURI FOLLOWED UP WITH ADEBAYO MCPHERSON [phone] TO SEE IF CONSENT FORMS HAVE BEEN SENT. GAURI LEFT VM. Addendum: 06/11/20 at 1121 by Rodriguez Orr GAURI NOTIFIED CHARGE NURSE ROGER REGARDING CONVERSATION WITH KELLEE MCPHERSON FROM [facility]. ROGER VERBALIZED UNDERSTANDING. CASE MANAGEMENT WILL FAX CLINICAL PACKET TO [facility] WHERE PATIENT ELOPED FROM ONCE PATIENT IS MEDICALLY CLEARED. Addendum: 06/11/20 at 1136 by Rodriguez Orr PER CONVERSATION WITH ADEBAYO, PATIENT IS ONLY ABLE TO BE DISCHARGED TO [facility] OR [facility]. GAURI CONSULTED WITH REGIONAL CUSTOM CAR BUILDER, CARLOS. GAURI WAS INSTRUCTED TO CONTACT [facility]. GAURI CONTACTED [facility] AND WAS TRANSFERRED TO CALENDER WIND UP TENDER [facility]. [facility] PROVIDED FAX NUMBER [phone] TO SEND CLINICALS ONCE PATIENT IS MEDICALLY CLEARED. [facility] STATED HE WOULD CONTACT CUSTOM CAR BUILDER ONCE HE RECEIVES ADDITIONAL INFORMATION ON PATIENT'S ELOPE. GAURI NOTIFIED CM. Addendum: 06/11/20 at 1156 by Rodriguez MORALES GAURI DISCUSSED CASE WITH DR. SON. GAURI VERIFIED THAT PATIENT CAN BE TRANSFERRED ONCE PATIENT IS MEDICALLY CLEARED FOR TRANSFER. GAURI WAS CONTACTED BY CALENDER WIND UP TENDER [facility]WOT FROM [facility] BE[facility]. PER [facility], PATIENT ELOPED FROM MEDICAL FLOOR. [facility] PROVIDED CALENDER WIND UP TENDER [facility] [phone]. PER WYATT, CASE MANAGEMENT DEPARTMENT WOULD HAVE TO CONTACT [facility] [phone]. Addendum: 06/11/20 at 1204 by Rodriguez MORALES PER ANNETTA, PATIENT IS MEDICALLY CLEARED. GAURI CONTACTED BETTY FROM [facility]SFER [facility] . BETTY REQUESTED CLINICALS BE FAXED [phone]. Addendum: 06/11/20 at 1206 by Rodriguez MORALES GAURI FAXED CLINICALS AND ENDORSED TO . Addendum: 06/14/20 at 1138 by Rodriguez MORALES GAURI CONSULTED WITH MUNITIONS HANDLER REGARDING DISCHARGE PLAN. GAURI SPOKE WITH PATIENT WHO HAD SLURRED SPEECH AND WAS LETHARGIC. PATIENT WAS A/O X2 AND KNEW HE WAS IN [facility] AND KNEW OF HIS NAME. PATIENT REPORTED THAT HE USES A WHEELCHAIR AND STATED THAT HE HAS NO ADDRESS OR FAMILY. PATIENT STATED THAT HE HIS UNSURE OF HIS MENTAL HEALTH DIAGNOSES AND DENIED SUBSTANCE ABUSE. GAURI PROVIDED HOMELESS RESOURCES. GAURI CONTACTED ADEBAYO MCPHERSON FROM [facility] [phone] AND LEFT VM. Addendum: 06/30/20 at 1633 by Rodriguez Orr SS GAURI CONTACTED RHYS FROM [facility] [phone] WHO CONFIRMED THAT PATIENT WILL BE ACCEPTED BY [facility] BUT HE DOES NOT HAVE ROOM NUMBER OR ACCEPTING PHYSICIAN YET. RHYS STATED HE IS WAITING ON A CALL BACK. GAURI CONFIRMED WITH [facility] THAT WILL CALL IS ARRANGED TO [facility]. RN NOTIFIED.
[2020-06-11] MEDS ORDERED: GAUZE TP PRN (11:10)
[2020-06-11] MEDS: GAUZE TP SCH (12:18)
[2020-06-11] MEDS: VANCOMYCIN 750 MG in DEXTROSE 5% 250 ML IV SCH ×2 (12:18→21:24)
--- NOTE | 2020-06-11 12:31 | NUR ---
ADMINISTERED SCHED MED PRESCRIBED PER MD ORDER. PT TOLERATED WELL. MEDICATION EDUCATION PERFORMED. PT VERBALIZED UNDERSTANDING. WOUND CARE PERFORMED. APPLY SOAKED BETADINE 4X4 GAUZES TO LEFT FOOT AND 5 TOES INTERSPACES ,COVER WITH ABD PAD AND WRAP WITH KERLIX ROLL QD AND PRN IF SOILING -NON-WEIGHT BEARING TO TOES. SAFETY MEASURES IN PLACE. WILL CONTINUE TO MONITOR.
--- NOTE | 2020-06-11 14:05 | NUR ---
HOURLY ROUNDING. PT RESTING IN BED. ABLE TO MAKE NEEDS KNOWN. RESPIRATIONS EVEN AND UNLABORED WITH NO SOB OR RESPIRATORY DISTRESS. SKIN WARM AND DRY TO TOUCH. SAFETY MEASURES IN PLACE. WILL CONTINUE TO MONITOR
--- NOTE | 2020-06-11 14:33 | NUR ---
PATIENT HAS BEEN SCREENED AND CATEGORIZED LOW NUTRITION RISK. PATIENT WILL BE SEEN WITHIN 7 DAYS OF ADMISSION. 06/17/[address]
--- NOTE | 2020-06-11 14:33 | NUR ---
NUTRITION CONSULT ORDERED FOR WOUNDS/PRESSURE ULCERS. WOUND CARE EVAL COMPLETED ON 06/11 BY TUBE DRAWER, KENDY. WOUND IS NOT RELATED TO NUTRITION, PT BMI 23.5, REGULAR DIET, PT AT LOW RISK FOR NUTRITION RELATED CONCERNS. RD TO COMPLETE INITIAL ASSESSMENT PER PRIORITIZATION GUIDELINES, NO FURTHER NUTRITION INTERVENTION RECOMMENDED AT THIS TIME.
[2020-06-11 16:00] VITALS: BP 127/74
--- NOTE | 2020-06-11 16:04 | NUR ---
VITAL SIGNS OBTAINED. NO SIGNS OF DISTRESS NOTED. RESPIRATIONS EVEN AND UNLABORED WITH NO SOB OR RESPIRATORY DISTRESS. SAFETY MEASURES IN PLACE. WILL CONTINUE TO MONITOR
--- NOTE | 2020-06-11 18:31 | NUR ---
HOURLY ROUNDING. PT RESTING IN BED. ABLE TO MAKE NEEDS KNOWN. PT DOES NOT WANT TO EAT. PT STATES "I WANT TO SLEEP A LITTLE BEFORE I EAT." ENCOURAGED PATIENT TO EAT BUT PATIENT STATES HE WANTS TO SLEEP INSTEAD. RESPIRATIONS EVEN AND UNLABORED WITH NO SOB OR RESPIRATORY DISTRESS. SKIN WARM AND DRY TO TOUCH. SAFETY MEASURES IN PLACE. WILL CONTINUE TO MONITOR
--- NOTE | 2020-06-11 19:30 | NUR ---
RECEIVED BEDSIDE REPORT FROM DAY SHIFT NURSE FOR CONTINUITY OF CARE. PT IS ASLEEP IN SEMI FOWLERS POSITION. PT DOES NOT APPEAR TO BE IN ANY DISTRESS. ON RA AND CHEST RISE AND FALL IS SYMMETRICAL. PT IS ON FALL PRECAUTIONS AND TYPICALLY USES WHEELCHAIR FOR MOVEMENT. PT IS INCONTINENT AND DRY CHUCKS ARE IN PLACE. IV IS PATENT AND INTACT INFUSING NS TKO. PLAN OF CARE WAS DISCUSSED. BED IS IN THE LOWEST POSITION AND CALL LIGHT IS WITHIN REACH. WILL CONTINUE TO MONITOR.
--- NOTE | 2020-06-11 19:30 | NUR ---
ENDORSED AT BEDSIDE TO NIGHTSHIFT NURSE FOR CONTINUITY OF CARE. PT IS STABLE
--- NOTE | 2020-06-11 21:25 | NUR ---
PT IS AWAKE AT THE SIDE OF THE BED EATING DINNER. PT USED THE URINAL AND VOIDED 300 ML NOLAN COLORED URINE. PT REQUEST SOME MORE JUICE AND SNACKS. IV ANTIBIOTIC IS INFUSING AND PT IS STABLE AT THIS TIME.
--- NOTE | 2020-06-11 22:00 | NUR ---
SOILED LINENS WERE CHANGED AND PT WAS REPOSTIONED IN BED. PT IS BACK TO SLEEP, COMFORTABLY.
--- NOTE | 2020-06-11 23:30 | NUR ---
PT IS SLEEPING IN SUPINE POSITION. NO DISTRESS OR PAIN NOTED. DRESSING ON FOOT IS INTACT WITH NO DRAINAGE. URINAL IS AT THE BEDSIDE. PT IS STABLE AT THIS TIME.
[2020-06-12] VITALS: BP 121/61
--- NOTE | 2020-06-12 01:16 | NUR ---
ROUNDED ON PT HE IS ASLEEP IN SUPINE POSITION. CHEST RISE AND FALL IS SYMMETRICAL. NO DISTRESS NOTED. PT IS STABLE. IV FLUIDS ARE INFUSING TKO. WILL CONTINUE TO MONITOR.
--- NOTE | 2020-06-12 03:20 | NUR ---
PT WAS GIVEN A SNACK AND JUICE. PT IS STABLE. NEEDS HAVE BEEN MET.
[2020-06-12] MEDS: VANCOMYCIN 750 MG in DEXTROSE 5% 250 ML IV SCH (05:06)
[2020-06-12 05:10] LABS: ANION GAP 11.3 (8-16); CARBON DIOXIDE 28.4 mmol/L (21-32); CREATININE 0.8 mg/dL (0.6-1.3); POTASSIUM 3.7 mmol/L (3.5-5.1)
--- NOTE | 2020-06-12 05:30 | NUR ---
SOILED LINENS WERE CHANGED AND PT REPOSITIONED HIMSELF IN BED. IV IS PATENT AND INFUSING. IV BANDAGE WAS REMOVED AND IV WAS SECURED WITH TAPE. PT WAS GIVEN A SANDWICH REQUESTED AND WATER.
[2020-06-12 06:10] LABS: BASOPHILS # (AUTO) 0.1 K/uL (0.00-0.22); BASOPHILS % (AUTO) 1.1 % (0.0-2.0); EOSINOPHILS # (AUTO) 0.5 K/uL (0-0.4); EOSINOPHILS % (AUTO) 5.5 % (0.0-4.0); HEMATOCRIT 40.2 % (36-52); HEMOGLOBIN 13.5 g/dL (12.0-18.0); LYMPHOCYTES # (AUTO) 1.8 K/uL (2.0-11.5); LYMPHOCYTES % (AUTO) 21.3 % (20.5-51.1); MEAN CORPUSCULAR HEMOGLOBIN 30 pg (27-31); MEAN CORPUSCULAR HGB CONC 34 g/dL (33-37); MEAN CORPUSCULAR VOLUME 87.7 fL (80-94); MONOCYTES % (AUTO) 11.7 % (1.7-9.3); NEUTROPHILS # (AUTO) 5.2 K/uL (1.8-7.7); NEUTROPHILS % (AUTO) 60.4 % (42.2-75.2); PLATELET COUNT (AUTO) 362 K/uL (140-450); RED BLOOD CELL COUNT(AUTO) 4.58 MIL/uL (4.20-6.10); RED CELL DISTRIBUTION WIDTH 14.3 % (11.6-13.7); WHITE BLOOD COUNT (AUTO) 8.6 K/uL (4.8-10.8)
--- NOTE | 2020-06-12 07:30 | NUR ---
ENDORSED PT TO DAY SHIFT NURSE FOR CONTINUITY OF CARE. PT IS STABLE AT THIS TIME. PLAN OF CARE WAS DISCUSSED.
--- NOTE | 2020-06-12 07:31 | NUR ---
RECEIVED REPORT FROM PROGRAM DIRECTOR SUBSTANCE ABUSE NURSE. PATIENT LYING DOWN IN BED SLEEPING, AROUSABLE BY VOICE. NO DISTRESS NOTED. DENIES ANY PAIN. AAOX2, CALM, COOPERATIVE, SKIN COLOR APPROPRIATE TO ETHNICITY, WARM TO TOUCH. HAS LEFT FOOT 1ST DISTAL PHALANX TUFT FRACTURE, DRESSING IS DRY AND INTACT. IV SITE INTACT, PATENT, AND INFUSING IVF PER MD ORDERS. RESPIRATIONS EVEN, UNLABORED ON ROOM AIR. REVIEWED PLAN OF CARE WITH PATIENT. REINFORCEMENT NEEDED PATIENT IS GRAVELY DISABLED. SAFETY MEASURES IN PLACE, CALL LIGHT WITHIN REACH. WILL CONTINUE TO MONITOR.
[2020-06-12 08:00] VITALS: BP 108/61
[2020-06-12] MEDS: ENOXAPARIN 40 MG/0.4 ML SYR SUBQ SCH (09:22)
--- NOTE | 2020-06-12 09:22 | NUR ---
PATIENT LYING DOWN IN BED SLEEPING, AROUSABLE BY VOICE. NO DISTRESS NOTED. CONDITION UNCHANGED. SCHEDULED MEDICATIONS DUE GIVEN. WILL CONTINUE TO MONITOR.
[2020-06-12] MEDS: GAUZE TP SCH (13:03)
[2020-06-12] MEDS: VANCOMYCIN 1,000 MG in DEXTROSE 5% 250 ML IV SCH ×2 (13:03→20:51)
--- NOTE | 2020-06-12 13:04 | NUR ---
PATIENT LYING DOWN IN BED SLEEPING, AROUSABLE BY VOICE. SCHEDULED MEDICATIONS DUE GIVEN. WOUND CARE MANAGEMENT COMPLETED PER MD ORDERS ON LEFT FOOT. PATIENT TOLERATED WELL. WILL CONTINUE TO MONITOR.
--- NOTE | 2020-06-12 15:30 | NUR ---
PATIENT SITTING DOWN IN BED SLEEPING, AROUSABLE BY VOICE. NO DISTRESS NOTED. CONDITION UNCHANGED. WILL CONTINUE TO MONITOR.
[2020-06-12 16:00] VITALS: BP 138/75
--- NOTE | 2020-06-12 16:30 | NUR ---
PATIENT LYING DOWN IN BED. CONDITION UNCHANGED. WILL CONTINUE TO MONITOR.
--- NOTE | 2020-06-12 19:20 | NUR ---
RECEIVED BEDSIDE REPORT FROM DAY SHIFT NURSE FOR CONTINUITY OF CARE. PT IS AWAKE AND ALERT, A&OX3. ON RA WITH BREATHING UNLABORED. SKIN IS WARM AND DRY. IV IS IN THE RIGHT FOREARM 22 GAUGE TKO WITH NS. CELLULITIS OF THE LEFT FOOT, OPEN WOUND. DRESSING WAS CHANGED TODAY PER DAY SHIFT NURSE. DRESSING IS DRY AND INTACT. PT IS A FALL RISK WITH PRECAUTIONS IN PLACE. PT NORMALLY USES A WHEELCHAIR FOR MOBILITY. URINAL AT THE BEDSIDE. PLAN OF CARE DISCUSSED. BED IS IN THE LOWEST POSITION. PT IS STABLE.
--- NOTE | 2020-06-12 19:29 | NUR ---
GAVE REPORT TO SOFTWARE EDUCATOR NURSE FOR CONTINUITY OF CARE. PATIENT IN STABLE CONDITION.
--- NOTE | 2020-06-12 19:49 | NUR ---
SPOKE TO NIELS FROM [facility] TRANSFER DEPARTMENT. NIELS STATED THERE WERE NO BEDS AVAILABLE FOR TONIGHT DUE TO BEING SHORT STAFFED. I STATED THAT THE PT WAS STILL NEEDING TO BE TRANSFERRED WHEN THERE IS IN AVAILABLE BED. SHE WILL FOLLOW UP IN THE MORNING TO REPORT IF THERE IS A BED AVAILABLE.
--- NOTE | 2020-06-12 21:30 | NUR ---
PT WAS GIVEN JELLO, PUDDING, AND JUICE REQUESTED. PT DENIES PAIN AT THIS TIME. NO DISTRESS NOTED. IV FLUIDS ARE PATENT AND INFUSING TKO IN THE RIGHT FOREARM WITH NO SIGNS OF INFILTRATION. DRESSING ON THE LEFT FOOT IS DRY AND INTACT.
--- NOTE | 2020-06-12 23:30 | NUR ---
PT IS ASLEEP. CHEST RISE AND FALL IS SYMMETRICAL. IV IS PATENT AND INFUSING NS TKO. BED IS IN THE LOWEST POSITION. PT IS STABLE.
[2020-06-13] VITALS: BP 116/64
--- NOTE | 2020-06-13 01:30 | NUR ---
ROUNDED ON PT AND SHE IS ASLEEP. BREATHING IS UNLABORED. NO DISTRESS NOTED. URINAL IS WITHIN REACH. IV FLUIDS ARE PATENT AND INFUSING. PT IS STABLE. Addendum: 06/13/20 at 0700 by Joanna Eng RN HE IS ASLEEP NOT SHE IS ASLEEP.
--- NOTE | 2020-06-13 03:30 | NUR ---
SOILED LINENS WERE CHANGED AND PT WAS REPOSITIONED. PT WAS GIVEN A SNACK REQUESTED. PT IS STABLE. WILL CONTINUE TO MONITOR.
[2020-06-13] MEDS: VANCOMYCIN 1,000 MG in DEXTROSE 5% 250 ML IV SCH ×3 (04:40→21:12)
--- NOTE | 2020-06-13 05:30 | NUR ---
PT WAS GIVEN A PUDDING REQUESTED AND WATER. PT IS SITTING IN BED EATING PUDDING. BREATHING IS UNLABORED, ON RA. BED IS IN THE LOWEST POSITION. NEEDS HAVE BEEN MET.
--- NOTE | 2020-06-13 07:06 | NUR ---
ENDORSED PT TO DAY SHIFT NURSE FOR CONTINUITY OF CARE. PT IS STABLE AT THIS TIME. PLAN OF CARE DISCUSSED.
--- NOTE | 2020-06-13 07:11 | NUR ---
RECEIVED BEDSIDE REPORT FROM NIGHTSHIFT NURSE. PT RESTING IN BED. ABLE TO MAKE NEEDS KNOWN. RESPIRATIONS EVEN AND UNLABORED WITH NO SOB OR RESPIRATORY DISTRESS. SKIN WARM AND DRY TO TOUCH. IV SITE IN RFA 22G IS CLEAN, DRY, AND INTACT. SAFETY MEASURES IN PLACE. WILL CONTINUE TO MONITOR
[2020-06-13 08:00] VITALS: BP 120/74
[2020-06-13] MEDS: ENOXAPARIN 40 MG/0.4 ML SYR SUBQ SCH (09:00)
--- NOTE | 2020-06-13 10:18 | NUR ---
ADMINISTERED PRESCRIBED MEDS PRESCRIBED BY MD ORDER. PATIENT TOLERATED MEDICATION WELL. REINFORCEMENT NEEDED. SAFETY MEASURES IN PLACE. WILL CONT TO MONITOR.
[2020-06-13 11:55] LABS: ANION GAP 9.4 (8-16); BASOPHILS # (AUTO) 0.1 K/uL (0.00-0.22); BASOPHILS % (AUTO) 0.9 % (0.0-2.0); CARBON DIOXIDE 29.2 mmol/L (21-32); CREATININE 0.8 mg/dL (0.6-1.3); EOSINOPHILS # (AUTO) 0.3 K/uL (0-0.4); HEMOGLOBIN 14.1 g/dL (12.0-18.0); LYMPHOCYTES # (AUTO) 1.3 K/uL (2.0-11.5); LYMPHOCYTES % (AUTO) 22.5 % (20.5-51.1); MEAN CORPUSCULAR HEMOGLOBIN 29 pg (27-31); MEAN CORPUSCULAR HGB CONC 34 g/dL (33-37); MEAN CORPUSCULAR VOLUME 87.3 fL (80-94); MONOCYTES # (AUTO) 0.8 K/uL (0.8-1.0); NEUTROPHILS # (AUTO) 3.2 K/uL (1.8-7.7); NEUTROPHILS % (AUTO) 57.6 % (42.2-75.2); PLATELET COUNT (AUTO) 395 K/uL (140-450); POTASSIUM 4.6 mmol/L (3.5-5.1); RED BLOOD CELL COUNT(AUTO) 4.81 MIL/uL (4.20-6.10); RED CELL DISTRIBUTION WIDTH 14.6 % (11.6-13.7); WHITE BLOOD COUNT (AUTO) 5.6 K/uL (4.8-10.8)
--- NOTE | 2020-06-13 12:00 | NUR ---
CALLED JESSE AND SPOKE TO BREEZY TO FOLLOW UP BED, AT THIS TIME NO BED AVAILABLE.
[2020-06-13] MEDS: GAUZE TP SCH (13:49)
--- NOTE | 2020-06-13 13:49 | NUR ---
ADMINISTERED MED PRESCRIBED BY MD ORDER. PATIENT TOLERATED WELL. DRESSING CHANGE PERFORMED ON L FOOT. PATIENT TOLERATED WELL. EDUCATION PROVIDED. REINFORCEMENT NEEDED. SAFETY MEASURES IN PLACE. WILL CONT TO MONITOR.
--- NOTE | 2020-06-13 15:15 | NUR ---
HOURLY ROUNDING. PT RESTING IN BED. ABLE TO MAKE SOME NEEDS KNOWN. RESPIRATIONS EVEN AND UNLABORED WITH NO SOB OR RESPIRATORY DISTRESS. SKIN WARM AND DRY TO TOUCH. SAFETY MEASURES IN PLACE. WILL CONTINUE TO MONITOR
[2020-06-13 16:00] VITALS: BP 120/63
--- NOTE | 2020-06-13 16:06 | NUR ---
HOURLY ROUNDING COMPLETED. PATIENT IS RESTING IN BED. RESIPIRATIONS ARE EVEN AND UNLABORED. NO SIGNS OF DISTRESS NOTED. SKIN IS WARM AND DRY TO TOUCH. SAFETY MEASURES IN PLACE. WILL CONT TO MONITOR.
--- NOTE | 2020-06-13 19:35 | NUR ---
ENDORSED AT BEDSIDE FOR CONTINUITY OF CARE. PT IS STABLE
--- NOTE | 2020-06-13 19:36 | NUR ---
RECEIVED BEDSIDE REPORT FROM DAY RN. PT RESTING IN BED. ABLE TO MAKE NEEDS KNOWN. PT IS AAOX3. RESPIRATIONS EVEN AND UNLABORED WITH NO SOB OR RESPIRATORY DISTRESS ON ROOM AIR. LUNG SOUNDS ARE CLEAR. SKIN WARM AND DRY TO TOUCH. L FOOT CELLULITIS. WOUND CLEAN WITH BETADINE DENIES ANY PAIN. IV SITE IN RFA 22G IS CLEAN, DRY, AND INTACT TKO. SAFETY MEASURES IN PLACE. POC DISCUSSED WITH PT. WILL CONTINUE TO MONITOR.
--- NOTE | 2020-06-13 21:12 | NUR ---
PT WAS CLEANED BY GROUND SUPPORT EQUIPMENT FITTER. IV ABX INFUSING PER ORDERS. ALL NEEDS MET. WILL CONTINUE TO MONITOR.
[2020-06-14] VITALS: BP 108/61
--- NOTE | 2020-06-14 00:30 | NUR ---
VSS, PT REFUSING WOUND ASSESSMENT AND DRESSING CHANGE. EXPLAIN PURPOSE AND IMPORTANCE OF MAINTAINING WOUND CLEAN AND DRY. PT VERBALIZED UNDERSTANDING. STILL REFUSING. WILL TRY AGAIN LATER.
--- NOTE | 2020-06-14 02:18 | NUR ---
ROUNDS MADE. PT IS SLEEPING COMFORTABLY IN BED WITH EYES CLOSED. CHEST RISE AND FALL NOTED. WILL CONTINUE TO MONITOR.
[2020-06-14] MEDS: VANCOMYCIN 1,000 MG in DEXTROSE 5% 250 ML IV SCH ×3 (04:12→20:59)
--- NOTE | 2020-06-14 04:12 | NUR ---
IV ABX NOW INFUSING PER ORDERS. PT SLEEPING COMFORTABLY IN BED. CHEST RISE AND FALL NOTED. WILL CONTINUE TO MONITOR.
[2020-06-14 06:07] LABS: BASOPHILS % (AUTO) 0.4 % (0.0-2.0); EOSINOPHILS # (AUTO) 0.4 K/uL (0-0.4); EOSINOPHILS % (AUTO) 5.4 % (0.0-4.0); HEMOGLOBIN 13.7 g/dL (12.0-18.0); LYMPHOCYTES # (AUTO) 1.7 K/uL (2.0-11.5); LYMPHOCYTES % (AUTO) 26.7 % (20.5-51.1); MEAN CORPUSCULAR HEMOGLOBIN 29 pg (27-31); MEAN CORPUSCULAR HGB CONC 33 g/dL (33-37); MEAN CORPUSCULAR VOLUME 87.5 fL (80-94); MONOCYTES # (AUTO) 0.9 K/uL (0.8-1.0); NEUTROPHILS # (AUTO) 3.6 K/uL (1.8-7.7); NEUTROPHILS % (AUTO) 54.5 % (42.2-75.2); PLATELET COUNT (AUTO) 389 K/uL (140-450); RED BLOOD CELL COUNT(AUTO) 4.69 MIL/uL (4.20-6.10); RED CELL DISTRIBUTION WIDTH 14.3 % (11.6-13.7); WHITE BLOOD COUNT (AUTO) 6.5 K/uL (4.8-10.8)
[2020-06-14 06:33] LABS: ANION GAP 13.6 (8-16); CARBON DIOXIDE 25.5 mmol/L (21-32); CREATININE 0.7 mg/dL (0.6-1.3); POTASSIUM 4.1 mmol/L (3.5-5.1)
[2020-06-14 08:00] VITALS: BP 117/65
--- NOTE | 2020-06-14 08:18 | NUR ---
RECEIVED BEDSIDE REPORT FROM NIGHT RN. PT IN BED. PT AOX3. RESPIRATIONS EVEN AND UNLABORED WITH NO SOB ON ROOM AIR. SKIN NOT INTACT. WITH LEFT FOOT CELLULITIS. IV SITE IN RFA 22G IS CLEAN, DRY, AND INTACT TKO. SAFETY MEASURES IN PLACE. WILL CONTINUE TO MONITOR.
[2020-06-14] MEDS: ENOXAPARIN 40 MG/0.4 ML SYR SUBQ SCH (09:00)
--- NOTE | 2020-06-14 09:10 | NUR ---
DUE MORNING MEDS GIVEN
--- NOTE | 2020-06-14 11:10 | NUR ---
PT ASLEEP IN BED. NO S/S OF PAIN, NO SOB
--- NOTE | 2020-06-14 13:30 | NUR ---
PT AWAKE, RESTING IN BED. NO C/O PAIN, NO SOB, AFEBRILE
[2020-06-14] MEDS: GAUZE TP SCH (13:49)
[2020-06-14 16:00] VITALS: BP 123/55
--- NOTE | 2020-06-14 16:30 | NUR ---
PATIENT IS RESTING IN BED. RESPIRATIONS ARE EVEN AND UNLABORED. NO SIGNS OF DISTRESS NOTED.
--- NOTE | 2020-06-14 18:36 | NUR ---
PT RESTING IN BED. ABLE TO MAKE SOME NEEDS KNOWN. RESPIRATIONS EVEN AND UNLABORED WITH NO SOB OR RESPIRATORY DISTRESS.
--- NOTE | 2020-06-14 19:22 | NUR ---
RECEIVED BEDSIDE REPORT FROM DAY SHIFT NURSE. PT IN BED SLEEPING. NO S/SX OF DISTRESS NOTED. RESPIRATIONS EVEN AND UNLABORED TO ROOM AIR. PT ABLE TO AMBULATE AND MAKE NEEDS KNOWN. PT WITH IV ACCESS ON RIGHT HAND G24 PATENT AND INTACT. IVF INFUSING WELL. PT KEPT COMFORTABLE. SAFETY MEASURES IN PLACE. WILL CONTINUE TO MONITOR. Addendum: 06/14/20 at 1951 by Irwin Ash RN PT WITH CELLULITIS ON LEFT FOOT. DRESSING IN PLACE.
[2020-06-14] MEDS ORDERED: VANCOMYCIN 1,000 MG VIAL ONE ×2 (20:54→20:57)
--- NOTE | 2020-06-14 20:59 | NUR ---
SCHEDULED MEDS GIVEN ORDERED. PT IN BED RESTING. NO REQUESTS MADE. SAFETY MEASURES IN PLACE. CALL LIGHT WITHIN REACH. WILL CONTINUE TO MONITOR.
--- NOTE | 2020-06-14 22:08 | NUR ---
PT IN BED SLEEPING. VISIBLE CHEST RISE AND FALL NOTED. PT NOT IN DISTRESS. PT KEPT COMFORTABLE. SAFETY MEASURES IN PLACE. CALL LIGHT WITHIN REACH. WILL CONTINUE TO MONITOR.
[2020-06-15] VITALS: BP 111/66
--- NOTE | 2020-06-15 00:07 | NUR ---
VITAL SIGNS STABLE. PT WENT BACK TO SLEEP AFTER. PT NOT IN DISTRESS. PT DENIES ANY PAIN OR DISCOMFORT. PT KEPT COMFORTABLE. SAFETY MEASURES IN PLACE. WILL CONTINUE TO MONITOR.
--- NOTE | 2020-06-15 01:42 | NUR ---
SNACK PROVIDED FOR PT REQUESTED. WILL CONTINUE TO MONITOR.
--- NOTE | 2020-06-15 04:00 | NUR ---
PT ASLEEP. NO S/SX OF PAIN OR DISCOMFORT NOTED. PT NOT IN DISTRESS. SAFETY MEASURES IN PLACE. CALL LIGHT WITHIN REACH. WILL CONTINUE TO MONITOR.
[2020-06-15] MEDS ORDERED: VANCOMYCIN 1,000 MG VIAL ONE (04:10)
[2020-06-15] MEDS: VANCOMYCIN 1,000 MG in DEXTROSE 5% 250 ML IV SCH ×3 (04:18→20:08)
--- NOTE | 2020-06-15 07:29 | NUR ---
ENDORSED TO DAY SHIFT NURSE FOR CONTINUITY OF CARE
--- NOTE | 2020-06-15 07:35 | NUR ---
REC'D BEDSIDE ENDORSEMENT FROM NIGHTSHIFT NURSE. PATIENT IS RESTING IN BED. RESPIRATIONS EVEN AND UNLABORED. ABLE TO MAKE NEEDS KNOWN. SAFETY MEASURES IN PLACE. WILL CONT TO MONITOR.
[2020-06-15 08:00] VITALS: BP 102/64
--- NOTE | 2020-06-15 08:12 | NUR ---
MESSAGE LEFT TO DR. VERA' VOICEMAIL TO FOLLOW UP WITH THE PSYCH CONSULT. Addendum: 06/15/20 at 0813 by Teri Gabriel RN AWAITING FOR CALL BACK. RN ASSIGNED MADE AWARE.
[2020-06-15] MEDS: ENOXAPARIN 40 MG/0.4 ML SYR SUBQ SCH (09:00)
--- NOTE | 2020-06-15 10:13 | NUR ---
ADMINISTERED PRESCRIBED MEDS PER MD ORDER. PATIENT RESTING IN BED. TOLERATED TX WELL. REINFORCEMENT NEEDED. SAFETY MEASURES IN PLACE. WILL CONT TO MONITOR.
[2020-06-15] MEDS: GAUZE TP SCH (13:00)
--- NOTE | 2020-06-15 13:20 | NUR ---
PATIENT REQ BED GROSS FOR BM. BED GROSS GIVEN FOR USE. PATIENT IS NOW LYING IN BED. SAFETY MEASURES IN PLACE. WILL CONT TO MONITOR.
--- NOTE | 2020-06-15 15:46 | NUR ---
CHANGED GAUZE AND DRESSING ON PATIENT. PATIENT TOLERATED TX W/ SOME PAIN NOTED. PREV DRESSING REMOVED W/ NS, SOAKED 4x4 GAUZE PADS W/ BETAIODINE, PLACED OVER/IN BETWEEN TOES, COVERED W/ ABD DRESSING, SECURED W/ WRAP. NO BLEEDING OR DRAINAGE NOTED. PATIENT LAYED BACK DOWN IN BED AFTER TX. SAFETY MEASURES IN PLACE. WILL CONT TO MONITOR.
[2020-06-15 16:00] VITALS: BP 110/74
--- NOTE | 2020-06-15 19:00 | NUR ---
RECEIVED PT FROM MARIBELL CLEMENTE, PT [id number] HOLD PENDING ADMIT TO JESSE, PT IS ON RM AIR, LUNG SOUNDS CLEAR, S1 AND S2 HEART SOUNDS HEARD, PULSES PALPABLE UPPER AND LOWER EXTREMITIES, BOWEL SOUNDS ACTIVE, LEFT FOOT BANDAGE INTACT, NO SIGNS OF DISTRESS NOTED, REINFORCED PT TO LEAVE IV LINE ALONE Addendum: 06/15/20 at 2136 by Lui Anderson RN REPORT RECEIVED [id number]
--- NOTE | 2020-06-15 19:21 | NUR ---
PATIENT PULLED OUT IV. REMOVED AND REINSERTED 22G IV IN LFA. PATIENT TOLERATED WELL. WRAPPED IV SITE TO AVOID PATIENT FROM PULLING. SAFETY MEASURES IN PLACE.
--- NOTE | 2020-06-15 19:32 | NUR ---
BEDSIDE ENDORSEMENT GIVEN TO NIGHTSHIFT NURSE. PATIENT RESTING IN BED. PATIENT IS STABLE.
--- NOTE | 2020-06-15 20:15 | NUR ---
PT MEDS GIVEN PT COMPLAINING OF BEING HUNGRY, PT GIVEN JELLO AND REINFORCED TEACHING TO LEAVE IV ALONE
[2020-06-16] VITALS: BP 106/85
--- NOTE | 2020-06-16 00:10 | NUR ---
PT RESTING IN BED ASKING FOR FOOD, GAVE PT FOOD, WILL CONTINUE TO MONITOR PT
[2020-06-16] MEDS: VANCOMYCIN 1,000 MG in DEXTROSE 5% 250 ML IV SCH ×3 (04:40→21:14)
--- NOTE | 2020-06-16 04:45 | NUR ---
PT MEDS GIVEN, VITALS TAKEN, NO SIGNS OF DISTRESS WILL CONTINUE TO MONITOR PT
--- NOTE | 2020-06-16 07:45 | NUR ---
RECEIVED PT FROM TIRE AND TUBE REPAIRER, HUSSAIN, PT IS ASLEEP, LYING ON THE BED, RESPIRATION EVEN, PT ON ROOM AIR, PT HAS A LEFT FOOT DRESSING IN PLACE, IV LINE NOTED ON THE LEFT FA G. 22 WITH IVF NS AT TKO, NO SIGN OF DISTRESS NOTED AND WILL CONTINUE TO MONITOR PT.
[2020-06-16 08:00] VITALS: BP 128/69
[2020-06-16] MEDS: ENOXAPARIN 40 MG/0.4 ML SYR SUBQ SCH (08:33)
--- NOTE | 2020-06-16 08:33 | NUR ---
PT WAS GIVEN THE SCHEDULED AM MEDICATION NOW, PARAMETER CHECKED AND WILL MONITOR PT.
[2020-06-16] MEDS: GAUZE TP SCH (13:00)
[2020-06-16 16:00] VITALS: BP 129/58
--- NOTE | 2020-06-16 19:20 | NUR ---
ENDORSED PT TO SHINGLE INSPECTOR NURSE FOR CONTINUITY OF CARE.
--- NOTE | 2020-06-16 19:25 | NUR ---
RECEIVED ENDORSEMENT FROM AM NURSE. PT REMAINS IN STABLE CONDITION. RESTING QUIETLY IN BED WITHOUT APPARENT DISTRESS, NO SOB NOTED. DENIES ANY PAIN/DISCOMFORT AT THIS TIME. RESPIRATIONS EVEN AND UNLABORED. NOTED IV ACCESS ON LFA 22G, PATENT AND INTACT. RUNNING NS @ TKO. PT HAS L FOOT CELLULITIS, DRESSING INTACT. COMFORT MEASURES IN PLACED. BED IN LOWEST POSITION, SIDE RAILS UPX2. CALL LIGHT WITHIN REACH. WILL CONTINUE TO MONITOR.
--- NOTE | 2020-06-16 21:25 | NUR ---
PT IN BED RESTING COMFORTABLY, ASKED FOR SNACKS, ATE SOME PUDDING AND JUICE. SAFETY MEASURES IN PLACED. WILL CONTINUE TO MONITOR.
--- NOTE | 2020-06-16 23:25 | NUR ---
CHECKED ON PT, SLEEPING COMFORTABLY IN BED. NO APPARENT DISTRESS, NO SOB NOTED. SAFETY MEASURES IN PLACED. CALL LIGHT WITHIN REACH, WILL CONTINUE TO MONITOR.
[2020-06-17] VITALS: BP 112/68
--- NOTE | 2020-06-17 01:25 | NUR ---
PT LYING COMFORTABLY IN BED. ASKED FOR SOMETHING TO EAT, GAVE CRACKERS AND JUICE. IN NO DISTRESS, NO SOB NOTED. SAFETY MEASURES IN PLACED. CALL LIGHT WITHIN REACH, WILL CONTINUE TO MONITOR.
--- NOTE | 2020-06-17 03:25 | NUR ---
PT ASKED FOR SANDWICH AND JUICE. TOLERATED WELL.
[2020-06-17] MEDS: VANCOMYCIN 1,000 MG in DEXTROSE 5% 250 ML IV SCH ×3 (04:21→21:16)
--- NOTE | 2020-06-17 05:20 | NUR ---
IV LINE OF LFA DISLODGED. INSERTED NEW IV LINE ON R HAND 24G. WILL CONTINUE TO MONITOR.
--- NOTE | 2020-06-17 07:05 | NUR ---
RIGHT HAND IV 24G WAS PULLED OUT BY PT. INSERTED ANOTHER IV LINE ON L HAND 24G X1 ATTEMPT. RE-ORIENT PT NOT TO PULL OUT IV LINE. NODDED HEAD RESPONSE, REINFORCEMENT NEEDED. WILL CONTINUE TO MONITOR.
--- NOTE | 2020-06-17 07:20 | NUR ---
ENDORSED PT TO AM SHIFT NURSE IN STABLE CONDITION FOR CONTINUITY OF CARE.
--- NOTE | 2020-06-17 07:25 | NUR ---
RECEIVED PT FROM DROP MACHINE OPERATOR NURSE PT IS AWAKE AND LYING ON THE BED WITH SAFETY PRECAUTION IN PLACE, IV LINE NOTED ON THE LEFT FA G. 24 WITH IVF ON TKO, PT IS GRAVELY DISABLED, INCOMPREHENSIBLE, ON RA, NO SIGN OF DISTRESS NOTED AND WILL MONITOR PT.
[2020-06-17 08:00] VITALS: BP 118/67
[2020-06-17] MEDS: ENOXAPARIN 40 MG/0.4 ML SYR SUBQ SCH (09:24)
--- NOTE | 2020-06-17 09:24 | NUR ---
PT WAS GIVEN THE SCHEDULED AM MEDICATION, WILL MONITOR PT.
--- NOTE | 2020-06-17 11:45 | NUR ---
PT WAS MAKING NOISE AND WAS OFFERED FOOD AND GOT CALM.
[2020-06-17 12:33] LABS: BASOPHILS % (AUTO) 0.2 % (0.0-2.0); EOSINOPHILS # (AUTO) 0.2 K/uL (0-0.4); EOSINOPHILS % (AUTO) 3.3 % (0.0-4.0); HEMATOCRIT 44.5 % (36-52); HEMOGLOBIN 14.9 g/dL (12.0-18.0); LYMPHOCYTES # (AUTO) 1.9 K/uL (2.0-11.5); LYMPHOCYTES % (AUTO) 28.9 % (20.5-51.1); MEAN CORPUSCULAR HEMOGLOBIN 29 pg (27-31); MEAN CORPUSCULAR HGB CONC 34 g/dL (33-37); MEAN CORPUSCULAR VOLUME 87.5 fL (80-94); MONOCYTES # (AUTO) 0.6 K/uL (0.8-1.0); NEUTROPHILS # (AUTO) 3.9 K/uL (1.8-7.7); NEUTROPHILS % (AUTO) 58.6 % (42.2-75.2); PLATELET COUNT (AUTO) 453 K/uL (140-450); RED BLOOD CELL COUNT(AUTO) 5.08 MIL/uL (4.20-6.10); RED CELL DISTRIBUTION WIDTH 14.3 % (11.6-13.7); WHITE BLOOD COUNT (AUTO) 6.7 K/uL (4.8-10.8)
[2020-06-17 12:48] LABS: ANION GAP 11.2 (8-16); CARBON DIOXIDE 28.3 mmol/L (21-32); CREATININE 0.9 mg/dL (0.6-1.3); POTASSIUM 4.5 mmol/L (3.5-5.1)
[2020-06-17] MEDS: GAUZE TP SCH (13:00)
--- NOTE | 2020-06-17 13:45 | NUR ---
PT WAS CLEANED AND REFUSED FOR HIS FOOT TO BE TOUCHED, MAKES NOISE, FOOD WAS GIVEN AND WAS PACIFIED.
--- NOTE | 2020-06-17 14:46 | NUR ---
PT WAS GIVEN VANCOMYCIN IVPB, WILL MONITOR PT.
--- NOTE | 2020-06-17 15:24 | NUR ---
06/17/2020 RD INITIAL ASSESSMENT COMPLETED PLEASE REFER TO NUTRITION ASSESSMENT UNDER CARE ACTIVITY FOR ESTIMATED NUTRITIONAL NEEDS. CONTINUE CURRENT DIET ORDERED RD TO FOLLOW-UP IN 5-7 DAYS PATIENT IS LOW RISK. BETHANY JOHNSON RD
[2020-06-17 16:00] VITALS: BP 125/74
--- NOTE | 2020-06-17 17:15 | NUR ---
PT IS SLEEPING NOW.
--- NOTE | 2020-06-17 18:15 | NUR ---
PT SHOUTED AND IS ASKING FOR FOOD NOW.
--- NOTE | 2020-06-17 19:30 | NUR ---
RECEIVED BEDSIDE REPORT FROM DAY SHIFT NURSE. PATIENT IS AWAKE, RESPIRATION EVEN UNLABORED ON ROOM AIR. NO DISTRESS NOTED. LEFT LEG CELLULITIS NOTED. DRESSING INTACT AND DRY. SKIN IS WARM AND DRY. IV PATENT AND INTACT. PLAN OF CARE WAS DISCUSSED. ALL SAFETY MEASURES IN PLACE. BED IS AT LOW POSITION. CALL LIGHT WITHIN REACH. WILL CONTINUE TO MONITOR.
--- NOTE | 2020-06-17 19:43 | NUR ---
ENDORSED PT OT REGULATORY SCIENTIST NURSEGRETCHEN FOR CONTINUITY OF CARE.
--- NOTE | 2020-06-17 21:16 | NUR ---
ALL SCHEDULED MEDS WERE GIVEN PER ORDER. NO ASE NOTED.
--- NOTE | 2020-06-17 22:00 | NUR ---
PATIENT IS HUNGRY. FOOD PROVIDED.
[2020-06-18] VITALS: BP 126/75
--- NOTE | 2020-06-18 | NUR ---
VITALS WERE TAKEN. PATIENT IN STABLE CONDITION
--- NOTE | 2020-06-18 01:00 | NUR ---
PT REFUSED WOUND CARE. WILL TRY AGAIN LATER
--- NOTE | 2020-06-18 02:08 | NUR ---
CHECKED PATIENT. PATIENT SLEEPING RESPIRATION EVEN UNLABORED ON ROOM AIR. NO DISTRESS NOTED.
[2020-06-18] MEDS: VANCOMYCIN 1,000 MG in DEXTROSE 5% 250 ML IV SCH ×3 (05:33→20:56)
--- NOTE | 2020-06-18 05:34 | NUR ---
ASKED PATIENT AGAIN IF I CAN CHANGE HIS WOUND DRESSING. PATIENT FINALLY AGREED AND SAID YES. WOUND CARE PROVIDED AND TOLERATED IT WELL
--- NOTE | 2020-06-18 07:30 | NUR ---
ENDORSED PATIENT TO DAY SHIFT NURSE AT BEDSIDE FOR CONTINUITY OF CARE
--- NOTE | 2020-06-18 07:30 | NUR ---
RECEIVED REPORT FROM NIGHT NURSE FOR CONTINUITY OF CARE, PT IS STABLE, PT ASLEEP, RESPIRATIONS ARE EVEN AND UNLABORED ON ROOM AIR, PT HAS LEFT FA 22G SALINE LOCK, PT HAS A LEFT FOOT WOUND, WILL INTRODUCE SELF, SAFETY MEASURES IN PLACE, WILL CONTINUE TO MONITOR.
[2020-06-18 08:00] VITALS: BP 122/73
[2020-06-18] MEDS: ENOXAPARIN 40 MG/0.4 ML SYR SUBQ SCH (08:56)
--- NOTE | 2020-06-18 08:58 | NUR ---
ADMINISTERED SCHEDULED MEDICATION, MEDICATION EDUCATION PROVIDED, PT VERBALIZED UNDERSTAND, PT TOLERATED WELL, PT IS STABLE, NO SIGNS OF DISTRESS NOTED, WILL CONTINUE TO MONITOR.
--- NOTE | 2020-06-18 10:00 | NUR ---
TOOK PICTURE OF LEFT FOOT WOUND
--- NOTE | 2020-06-18 10:33 | NUR ---
WOUND CARE RE-EVALUATION NOTE: PT . IS ALERT TALKING TO HIMSELF, ABLE TO FOLLOW DIRECTIONS , KEEP BED IN LOWEST POSITION. LEFT FOOT CELLULITIS IMPROVING, NO SWELLING NO REDNESS. -LEFT FIRST DIGIT TOE 0.5X0.5CM BROWN SCAB, KARLEY WOUND SKIN INTACT.. -DORSAL FOOT MULTIPLE PARTIAL THICKNESS SKIN LOSS WITH LARGEST 3X1CM SUPERFICIAL DEPTH WOUND BED PALE PINK COLOR, DRY SCAR. -5 TOES INTERSPACES DRY AND CLEAN WILL CONTINUE SAME INTERVENTIONS. POC DISCUSSED WITH PRIMARY RN.
--- NOTE | 2020-06-18 13:00 | NUR ---
PT IN ROOM SLEEPING, NO SIGNS OF DISTRESS NOTED, RESPIRATIONS ARE EVEN AND UNLABORED ON ROOM AIR, WILL CONTINUE TO MONITOR.
[2020-06-18] MEDS: GAUZE TP SCH (14:07)
--- NOTE | 2020-06-18 14:08 | NUR ---
ADMINISTERED SCHEDULED MEDICATION, MEDICATION EDUCATION PROVIDED, PT TOLERATED OKAY, PT IS STABLE, WILL CONTINUE TO MONITOR.
[2020-06-18 16:00] VITALS: BP 117/80
--- NOTE | 2020-06-18 16:00 | NUR ---
PT ASKING FOR SNACK, GAVE PT APPLESAUCE, JELLO AND JUICE, PT IS STABLE, WILL CONTINUE TO MONITOR.
--- NOTE | 2020-06-18 17:30 | NUR ---
PT ASLEEP IN BED, NO SIGNS OF DISTRESS NOTED, RESPIRATIONS ARE EVEN AND UNLABORED ON ROOM AIR, WILL CONTINUE TO MONITOR.
--- NOTE | 2020-06-18 19:10 | NUR ---
RECEIVED PT AWAKE , TALKING IRRELEVANTLY TO THE TOPIC , KEEPS SMILING AND LAUGHING EVEN WITHOUT APPARENT REASON . PER DR. WU NOTES - PT HAS HX OF PSYCHE ISSUE IN THE PAST .IV SITE INTACT AND PATENT . NID - O2 SAT WNL . SAFETY MEASURES IN PLACE - WATCH OUT FOR ELOPEMENT . PLAN OF CARE DISCUSSED BUT POOR UNDERSTANDING DUE TO MENTAL STATUS . SAFETY MEASURES IN PLACE . W/ L LEG CELLULITIS - W/ DRESSING DRY AND INTACT - ON ABX . WILL CONT. TO MONITOR.
--- NOTE | 2020-06-18 19:10 | NUR ---
ENDORSE PT TO NIGHT NURSE FOR CONTINUITY OF CARE, PT IS STABLE.
--- NOTE | 2020-06-18 22:00 | NUR ---
OFFER SANDWICH - PT GRAB THE SANDWICH AND ASKING FOR ANOTHER ONE . WILL CONT. TO MONITOR .
[2020-06-19] VITALS: BP 110/60
--- NOTE | 2020-06-19 | NUR ---
MADE ROUNDS .PT APPEARS LYING ON THE BED COMFORTABLY . WILL CONT. TO MONITOR .
--- NOTE | 2020-06-19 01:00 | NUR ---
ATTEMP TO OPEN THE DRESSING TO ASSESS THE WOUND - BUT PT KEEPS MOVING HIS LEG AWAY FROM ME - PT . REFUSED - FLACC O - DRESSING DRY AND INTACT . WILL CONT. TO MONITOR . Addendum: 06/19/20 at 0350 by Lucero Carlson RN THE WORD ATTEMP IN ABOVE NURSE'S NOTE IS TYPOGRAPHICALLY ERROR , INSTEAD OF ATTEMPT
--- NOTE | 2020-06-19 04:00 | NUR ---
MADE ROUNDS . NO S/SX OF ACUTE DISTRESS NOTED AT THIS TIME .
[2020-06-19] MEDS: VANCOMYCIN 1,000 MG in DEXTROSE 5% 250 ML IV SCH ×3 (04:11→21:49)
--- NOTE | 2020-06-19 07:20 | NUR ---
RECEIVED REPORT FROM NIGHT NURSE FOR CONTINUITY OF CARE, PT IS ASLEEP, AAOX2, NO SIGNS OF DISTRESS NOTED, RESPIRATIONS ARE EVEN AND UNLABORED ON ROOM AIR, PT HAS LEFT FA 22G SALINE LOCK, PT HAS LEFT FOOT WOUND, PT ON BEDREST, BED IN LOW POSITION, SAFETY MEASURES IN PLACE, WILL CONTINUE TO MONITOR.
--- NOTE | 2020-06-19 07:20 | NUR ---
ENDORSED TO AM SHIFT - PT - STABLE .
[2020-06-19 08:00] VITALS: BP 124/81
[2020-06-19 09:12] LABS: BASOPHILS % (AUTO) 0.2 % (0.0-2.0); EOSINOPHILS # (AUTO) 0.2 K/uL (0-0.4); EOSINOPHILS % (AUTO) 2.8 % (0.0-4.0); HEMATOCRIT 41.1 % (36-52); HEMOGLOBIN 13.8 g/dL (12.0-18.0); LYMPHOCYTES # (AUTO) 1.8 K/uL (2.0-11.5); LYMPHOCYTES % (AUTO) 22.1 % (20.5-51.1); MEAN CORPUSCULAR HEMOGLOBIN 29 pg (27-31); MEAN CORPUSCULAR HGB CONC 34 g/dL (33-37); MEAN CORPUSCULAR VOLUME 87.2 fL (80-94); MONOCYTES # (AUTO) 0.7 K/uL (0.8-1.0); MONOCYTES % (AUTO) 8.9 % (1.7-9.3); NEUTROPHILS # (AUTO) 5.3 K/uL (1.8-7.7); PLATELET COUNT (AUTO) 422 K/uL (140-450); RED BLOOD CELL COUNT(AUTO) 4.71 MIL/uL (4.20-6.10); RED CELL DISTRIBUTION WIDTH 14.3 % (11.6-13.7)
[2020-06-19] MEDS: ENOXAPARIN 40 MG/0.4 ML SYR SUBQ SCH (09:23)
--- NOTE | 2020-06-19 09:25 | NUR ---
ADMINISTERED SCHEDULED MEDICATION, MEDICATION EDUCATION PROVIDED, PT TOLERATED WELL, PT IS STABLE, NO SIGNS OF DISTRESS NOTED, RESPIRATIONS ARE EVEN AND UNLABORED ON ROOM AIR, WILL CONTINUE TO MONITOR
[2020-06-19 09:27] LABS: ANION GAP 14.7 (8-16); CARBON DIOXIDE 23.9 mmol/L (21-32); CREATININE 0.8 mg/dL (0.6-1.3); POTASSIUM 3.6 mmol/L (3.5-5.1)
--- NOTE | 2020-06-19 11:30 | NUR ---
PT ASLEEP IN BED, NO SIGNS OF DISTRESS NOTED, RESPIRATIONS ARE EVEN AND UNLABORED ON ROOM AIR,PT IS STABLE, WILL CONTINUE TO MONITOR.
[2020-06-19] MEDS: GAUZE TP SCH (13:00)
[2020-06-19] MEDS ORDERED: VANCOMYCIN PER PHARMACY MC PRN (13:10)
--- NOTE | 2020-06-19 14:11 | NUR ---
ADMINISTERED SCHEDULED MEDICATION, MEDICATION EDUCATION PROVIDED, PT TOLERATED WELL, STARTED NEW IV ON LEFT HAND 22G, PT IS STABLE, WILL CONTINUE TO MONITOR.
--- NOTE | 2020-06-19 15:00 | NUR ---
PT ASLEEP IN BED, NO SIGNS OF DISTRESS NOTED, RESPIRATIONS ARE EVEN AND UNLABORED ON ROOM AIR, WILL CONTINUE TO MONITOR.
[2020-06-19 16:00] VITALS: BP 118/84
--- NOTE | 2020-06-19 17:00 | NUR ---
PT ASKED WHAT TIME IS DINNER, INFORMED PT, PT IS STABLE, NO SIGNS OF DISTRESS NOTED, RESPIRATIONS ARE EVEN AND UNLABORED ON ROOM AIR, WILL CONTINUE TO MONITOR.
--- NOTE | 2020-06-19 19:12 | NUR ---
ENDORSE PT TO NIGHT NURSE FOR CONTINUITY OF CARE, PT IS STABLE.
--- NOTE | 2020-06-19 19:25 | NUR ---
RECEIVED REPORT AND CONTINUITY OF CARE FROM AM NURSE. PT IS IN STABLE CONDITION.
--- NOTE | 2020-06-19 21:06 | NUR ---
UPON PHYSICAL ASSESSMENT, PT IS A/OX1-2 HEAD IS ROUND, NORMOCEPHALIC, FACE IS UNIFORMED, SYMMETRICAL, ALIGNED EYEBROWS AND SMILE, PMMM, SCLERA WHITE, PERRL. TRACHEA IS PLACE IN THE MIDLINE OF THE NECK, NO JVD PRESENT. CHEST IS SYMMETRICAL, LUNGS ARE CTAX4, ON INSPIRATION AND EXPIRATION, BREATHING SPONTANEOUSLY ON ROOM AIR. S1, S2 HEART TONES NOTED. BOWEL TONES ARE ACTIVE IN FOUR QUADRANTS. ABD IS FLAT AND NONTENDER. SKIN IS SMOOTH, WARM, DRY, 22G IV TO RIGHT HAND, PATENT, ASYMPTOMATIC, INTACT. NAILS ARE CLEAN, INTACT, CAP REFILL IS LESS THAN 3 SECONDS, NO CLUBBING OR CYANOSIS NOTED. EQUAL AND BILATERAL PEDAL PULSES NOTED. ORIENTED PT TO STAFF AND CALL LIGHT. SAFETY PRECAUTIONS IN PLACE. ORIENTED PT TO STAFF, ROOM, AND CALL LIGHT. BED IN LOW POSITION. PT IS IN STABLE CONDITION. ADMINISTERED SCHEDULED MEDICATION. EDUCATION RENDERED. PT UNABLE TO COMPREHEND.
--- NOTE | 2020-06-19 23:16 | NUR ---
PT IS RESTING IN BED. NO SIGNS OF DISTRESS AT THIS TIME.
[2020-06-20] VITALS: BP 126/67
--- NOTE | 2020-06-20 01:26 | NUR ---
REINFORCED WOUND DRESSING. EDUCATION GIVEN. PT WAS COOPERATIVE.
--- NOTE | 2020-06-20 03:38 | NUR ---
PT IS SLEEPING. VISIBLE CHEST RISE NOTED.
[2020-06-20] MEDS: VANCOMYCIN 1,000 MG in DEXTROSE 5% 250 ML IV SCH ×3 (05:09→20:22)
--- NOTE | 2020-06-20 05:49 | NUR ---
PT IS RESTING IN BED AND RAMBLING. LAB IS AT BEDSIDE TO DRAW BLOOD. PT WAS COOPERATIVE AND TOLERATED IT WELL.
[2020-06-20 06:30] LABS: ANION GAP 13.6 (8-16); CARBON DIOXIDE 28.1 mmol/L (21-32); CREATININE 0.8 mg/dL (0.6-1.3); POTASSIUM 3.7 mmol/L (3.5-5.1)
--- NOTE | 2020-06-20 07:25 | NUR ---
RECEIVED PATIENT FROM NIGHT NURSE. PATIENT AWAKE AND ALERT. RESP EVEN AND UNLABORED ON ROOM AIR. DENIED OF PAIN AT THIS TIME. PATIENT RAMBLING AND ASKED FOR FOOD. PATIENT IS ABLE TO BE REDIRECTED AND FOLLOW COMMANDS. PLAN OF CARE DISCUSSED WITH PATIENT. PATIENT STATED UNDERSTANDING. NO IV ACCESS AT THIS TIME. WILL ATTEMPT TO INSERT ANOTHER ACCESS. CALL LIGHT WITHIN REACH. WILL CONTINUE TO MONITOR.
--- NOTE | 2020-06-20 07:46 | NUR ---
ENDORSED CARE TO AM NURSE. PT IS IN STABLE CONDITION.
[2020-06-20 08:00] VITALS: BP 121/77
[2020-06-20] MEDS: ENOXAPARIN 40 MG/0.4 ML SYR SUBQ SCH (09:03)
--- NOTE | 2020-06-20 09:09 | NUR ---
MORNING ROUTINE MEDICATION GIVEN. PATIENT IN BED RESTING. AWAKE, ALERT AND ORIENTED X 3. RESP EVEN AND UNLABORED ON ROOM AIR. DENIED OF PAIN. SKIN IS WARM TO TOUCH AND INTACT. LEFT LOWER FOOT WRAPPED AND AVNI BANDAGE DRY AND INTACT. WILL PROVIDED SKIN CARE. PATIENT ABLE TO MAKE NEEDS KNOWN. SAFETY MEASURES IN PLACE. WILL CONTINUE TO MONITOR.
--- NOTE | 2020-06-20 11:47 | NUR ---
PATIENT IN BED SLEEPING. CHEST NOTED RISING. NO NOTED ACUTE S/S DISTRESS. SAFETY MEASURES IN PLACE. WILL CONTINUE TO MONITOR.
--- NOTE | 2020-06-20 13:25 | NUR ---
WOUND CARE PROVIDED. PATIENT TOLERATED WELL.
[2020-06-20] MEDS: GAUZE TP SCH (13:55)
--- NOTE | 2020-06-20 13:55 | NUR ---
IV ACCESS TO LFA 22G USING ASEPTIC TECHNIQUE. PATIENT TOLERATED WELL. PATIENT IN BED RAMBLING AND LAUGHING TO HIMSELF. ABLE TO GET PATIENT ATTENTION AND PATIENT ABLE TO FOLLOW COMMANDS BRIEFLY. ROUTINE MEDICATION IVPB INFUSING. RESP EVEN AND UNLABORED ON ROOM AIR. NO NOTED ACUTE S/S DISTRESS. SAFETY MEASURES IN PLACE. WILL CONTINUE TO MONITOR.
[2020-06-20 16:00] VITALS: BP 138/86
--- NOTE | 2020-06-20 16:10 | NUR ---
PATIENT IN BED TALKING TO HIMSELF. NO VERBAL OUTBURSTS NOTED OR AGGRESSIVE BEHAVIORS. PATIENT ABLE TO MAKE NEEDS KNOWN AND FOLLOWS COMMANDS. RESP EVEN AND UNLABORED ON ROOM AIR. NO NOTED DISTRESS. SAFETY MEASURES IN PLACE. WILL CONTINUE TO MONITOR.
--- NOTE | 2020-06-20 18:25 | NUR ---
PATIENT SLEEPING IN BED. CHEST NOTED RISING. NO NOTED DISTRESS. SAFETY MEASURES IN PLACE. WILL CONTINUE TO MONITOR.
--- NOTE | 2020-06-20 19:15 | NUR ---
RECEIVED BEDSIDE REPORT FROM DAY SHIFT NURSE. PATIENT IS AWAKE, AND COOPERATIVE. RESPIRATION EVEN UNLABORED ON ROOM AIR. NO DISTRESS NOTED. SKIN IS WARM AND DRY. IV PATENT AND INTACT. LEFT FOOT CELLULITIS NOTED. PLAN OF CARE WAS DISCUSSED. ALL SAFETY MEASURES IN PLACE. BED IS AT LOW POSITION. WILL CONTINUE TO MONITOR.
--- NOTE | 2020-06-20 19:30 | NUR ---
ENDORSED PATIENT TO NIGHT NURSE. PATIENT IN STABLE CONDITION.
--- NOTE | 2020-06-20 20:25 | NUR ---
ALL SCHEDULED MEDS WERE GIVEN. PATIENT IS ASKING FOR FOOD. SANDWICH PROVIDED. WILL CONTINUE TO MONITOR.
--- NOTE | 2020-06-20 20:45 | NUR ---
[facility] CALLED NO AVAILABLE BED AT THIS MOMENT
--- NOTE | 2020-06-20 23:08 | NUR ---
CHECKED PATIENT. PATIENT AWAKE AND HUNGRY AGAIN. PROVIDED FOOD. WILL CONTINUE TO MONITOR,
[2020-06-21] VITALS: BP 105/70
--- NOTE | 2020-06-21 02:03 | NUR ---
MADE ROUNDS. PATIENT IS SLEEPING RESPIRATION EVEN UNLABORED ON ROOM AIR. NO DISTRESS NOTED.
--- NOTE | 2020-06-21 03:56 | NUR ---
CHECKED PATIENT. PATIENT SLEEPING RESPIRATION EVEN UNLABORED ON ROOM AIR. NO DISTRESS NOTED
--- NOTE | 2020-06-21 04:30 | NUR ---
RESTING IN BED, AWAKE. TALKING TO SELF. OCCASIONALLY CALLED LOUD FOR NURSES ASKING FOR FOOD AND DRINKS.
[2020-06-21 06:52] LABS: ANION GAP 11.3 (8-16); CARBON DIOXIDE 29.4 mmol/L (21-32); CREATININE 0.8 mg/dL (0.6-1.3); POTASSIUM 3.7 mmol/L (3.5-5.1)
--- NOTE | 2020-06-21 07:00 | NUR ---
CONDITION REMAIN STABLE. WILL ENDORSE TO AM SHIFT NURSE FOR CONTINUITY OF CARE.
--- NOTE | 2020-06-21 07:01 | NUR ---
RECEIVED REPORT FROM BELL CAPTAIN NURSE DEIDRE. PT RESTING IN BED, AOX2/3, ON ROOM AIR WITH LEFT FA #22G RUNNING TKO @ 10ML/HR. DISCUSSED PLAN OF CARE AND PT VERBALIZED UNDERSTANDING. LEFT FOOT CELLULITIS WRAPPED IN KERLIX. NO S/S OF RESPIRATORY DISTRESS OR DISCOMFORT NOTED AT THIS TIME. WILL CONTINUE TO MONITOR.
--- NOTE | 2020-06-21 07:20 | NUR ---
REC'D REPORT FROM NIGHT NURSE, PT SLEEPING, WITH COVER OVER HEAD, BED AT LOWEST POSITION. CALL LIGHT WITHIN REACH
[2020-06-21 08:00] VITALS: BP 104/66
--- NOTE | 2020-06-21 09:00 | NUR ---
PT CONTINUES TO SLEEP IN BED. NO S/S OF RESPIRATORY DISTRESS OR DISCOMFORT NOTED AT THIS TIME. WILL CONTINUE TO MONITOR.
--- NOTE | 2020-06-21 10:06 | NUR ---
SCHEDULED MEDICATION LOVENOX GIVEN AND TOLERATED WELL. NO S/S OF RESPIRATORY DISTRESS OR DISCOMFORT NOTED AT THIS TIME. WILL CONTINUE TO MONITOR.
[2020-06-21] MEDS: ENOXAPARIN 40 MG/0.4 ML SYR SUBQ SCH (10:07)
--- NOTE | 2020-06-21 11:51 | NUR ---
PT RESTING ASLEEP WITH COVERS OVER HEAD. CALL LIGHT WITHIN REACH.
[2020-06-21] MEDS: GAUZE TP SCH (13:00)
--- NOTE | 2020-06-21 19:50 | NUR ---
RECEIVED PT . AWAKE , NID - O2 SAT WNL . KEEPS TALKING IRRELEVANTLY , KEEPS LAUGHING WITHOUT APPARENT REASON . IV SITE INTACT AND PATENT . SAFETY MEASURES IN PLACE . PLAN OF CARE DISCUSSED BUT POOR UNDERSTANDING DUE TO MENTAL STATUS . WILL CONT. TO MONITOR .
--- NOTE | 2020-06-22 | NUR ---
MADE ROUNDS . NO S/SX OF ACUTE DISTRESS NOTED
--- NOTE | 2020-06-22 04:00 | NUR ---
AWAKE . NO S/X OF ACUTE DISTRESS NOTED
--- NOTE | 2020-06-22 06:00 | NUR ---
NO COMPLAIN MADE .
--- NOTE | 2020-06-22 07:15 | NUR ---
RECEIVED PATIENT FROM NIGHT NURSE. PATIENT IN BED AWAKE RESPONDING TO NAME, WITH RAMBLING SPEECH. RESP EVEN AND UNLABORED ON ROOM AIR. LFA 22G NOTED INFUSING NS TKO. PLAN OF CARE DISCUSSED WITH PATIENT, UNABLE TO ACKNOWLEDGE UNDERSTANDING. SAFETY MEASURES IN PLACE. WILL CONTINUE TO MONITOR.
--- NOTE | 2020-06-22 07:15 | NUR ---
ENDORSED TO AM SHIFT - PT - STABLE .
[2020-06-22 07:19] LABS: ANION GAP 13.7 (8-16); CARBON DIOXIDE 27.5 mmol/L (21-32); CREATININE 0.8 mg/dL (0.6-1.3); POTASSIUM 4.2 mmol/L (3.5-5.1)
[2020-06-22 08:57] LABS: BASOPHILS # (AUTO) 0.1 K/uL (0.00-0.22); BASOPHILS % (AUTO) 0.9 % (0.0-2.0); EOSINOPHILS # (AUTO) 0.2 K/uL (0-0.4); EOSINOPHILS % (AUTO) 1.9 % (0.0-4.0); HEMATOCRIT 44.1 % (36-52); HEMOGLOBIN 14.7 g/dL (12.0-18.0); LYMPHOCYTES # (AUTO) 2.6 K/uL (2.0-11.5); LYMPHOCYTES % (AUTO) 27.5 % (20.5-51.1); MEAN CORPUSCULAR HEMOGLOBIN 29 pg (27-31); MEAN CORPUSCULAR HGB CONC 33 g/dL (33-37); MONOCYTES # (AUTO) 0.8 K/uL (0.8-1.0); MONOCYTES % (AUTO) 8.1 % (1.7-9.3); NEUTROPHILS # (AUTO) 5.7 K/uL (1.8-7.7); NEUTROPHILS % (AUTO) 61.6 % (42.2-75.2); PLATELET COUNT (AUTO) 433 K/uL (140-450); RED BLOOD CELL COUNT(AUTO) 5.07 MIL/uL (4.20-6.10); RED CELL DISTRIBUTION WIDTH 14.1 % (11.6-13.7); WHITE BLOOD COUNT (AUTO) 9.3 K/uL (4.8-10.8)
[2020-06-22] MEDS: ENOXAPARIN 40 MG/0.4 ML SYR SUBQ SCH (09:15)
--- NOTE | 2020-06-22 09:24 | NUR ---
MORNING ROUTINE MEDICATIONS GIVEN. PATIENT TOLERATED WELL. PATIENT AWAKE, RESPONDING TO NAME AND FOLLOW COMMANDS. PATIENT HAS INCOHERENT SLURRING SPEECH AND RAMBLING. PATIENT DENIED OF PAIN. RESP EVEN AND UNLABORED ON ROOM AIR. LFA 22G INTACT AND PATENT TKO. SKIN IS WARM AND INTACT. LEFT FOOT CELLULITIS WRAPPED WITH BANDAGE DRY AND INTACT. SAFETY MEASURES IN PLACE. WILL CONTINUE TO MONITOR.
--- NOTE | 2020-06-22 11:25 | NUR ---
PATIENT IN BED AWAKE AND ALERT. TALKING AND LAUGHING TO HIMSELF. DENIED OF PAIN AT THIS TIME. RESP EVEN AND UNLABORED ON ROOM AIR. SAFETY MEASURES IN PLACE. WILL CONTINUE TO MONITOR.
[2020-06-22] MEDS: GAUZE TP SCH (13:28)
--- NOTE | 2020-06-22 13:28 | NUR ---
PATIENT IN BED SLEEPING, CHEST NOTED RISING. NO NOTED DISTRESS AT THIS TIME. SAFETY MEASURES IN PLACE. WILL CONTINUE TO MONITOR.
--- NOTE | 2020-06-22 13:50 | NUR ---
DRESSING CHANGED TO LEFT FOOT CELLULITIS. NO ACTIVE BLEEDING OR DRAINAGE. PATIENT TOLERATED WELL.
--- NOTE | 2020-06-22 15:24 | NUR ---
PATIENT AWAKE AND ALERT. RESP EVEN AND UNLABORED ON ROOM AIR. PATIENT CONTINUES TO HAVE INCOHERENT SPEECH, LAUGHING TO SELF. ABLE TO FOLLOW COMMANDS. SAFETY MEASURES IN PLACE. WILL CONTINUE TO MONITOR.
[2020-06-22 16:00] VITALS: BP 124/69
--- NOTE | 2020-06-22 18:20 | NUR ---
PATIENT IN BED SLEEPING, CHEST NOTED RISING. NO ACUTE S/S DISTRESS. SAFETY MEASURES IN PLACE. WILL CONTINUE TO MONITOR.
--- NOTE | 2020-06-22 19:05 | NUR ---
ENDORSED PATIENT TO NIGHT NURSE. PATIENT IN STABLE CONDITION.
--- NOTE | 2020-06-22 19:06 | NUR ---
RECD. RESTING IN BED, AWAKE, A/OX2. RESPIRATION EVEN AND UNLABORED. IV NS AT TKO INFUSING AT 10 ML/HR, LEFT HAND G22. UNABLE TO CARE FOR HIMSELF. NO COMPLAINT OF PAIN, 0/10.
--- NOTE | 2020-06-22 22:30 | NUR ---
STILL AWAKE, OCCASIONALLY SHOUTS TO NURSES ASKING FOR FOOD.
--- NOTE | 2020-06-23 | NUR ---
SLEEPING COMFORTABLY IN BED.
--- NOTE | 2020-06-23 03:00 | NUR ---
AWAKE IN BED, OCCASIONALLY SHOUTS.
--- NOTE | 2020-06-23 05:00 | NUR ---
RESTING IN BED COMFORTABLY, NO AGITATION NOTED.
--- NOTE | 2020-06-23 07:00 | NUR ---
STAFF FROM [facility] CALLED AND INQUIRED REGARDING PATIENT IF STILL FOR TRANSFER, THERE IS POSSIBLE ROOM TODAY AND WILL CALL DR. SON. WILL CALL BACK AGAIN.
--- NOTE | 2020-06-23 07:24 | NUR ---
CONDITION REMAIN STABLE. ENDORSED TO AM SHIFT NURSE FOR CONTINUITY OF CARE.
--- NOTE | 2020-06-23 07:25 | NUR ---
RECEIVED REPORT FROM ORDER PROCESSOR RN FOR CONTINUITY OF CARE. PATIENT ASLEEP IN RIGHT LATERAL POSITION. RESPIRATORY EVEN AND UNLABORED. SKIN WARM TO TOUCH. IV SITE LEFT FOREARM 22G TKO. NO ACUTE DISTRESS NOTED AT THIS TIME. SAFETY MEASURES IN PLACE, WILL CONTINUE TO MONITOR.
[2020-06-23 08:15] LABS: ANION GAP 16.3 (8-16); CARBON DIOXIDE 22.5 mmol/L (21-32); CREATININE 0.7 mg/dL (0.6-1.3); POTASSIUM 3.8 mmol/L (3.5-5.1)
[2020-06-23] MEDS: ENOXAPARIN 40 MG/0.4 ML SYR SUBQ SCH (08:42)
--- NOTE | 2020-06-23 08:42 | NUR ---
LOVENOX GIVEN. EDUCATION PROVIDED, PATIENT TOLERATED WELL. PATIENT SLEEPING IN BED. PROVIDED EXTRA BLANKET TO KEEP PATIENT WARM. BREAKFAST AT BEDSIDE. INFORMED PATIENT TO HAVE BREAKFAST WHEN HE IS READY. SAFETY MEASURES IN PLACE, BED IN LOW POSITION. WILL CONTINUE TO MONITOR.
--- NOTE | 2020-06-23 11:15 | NUR ---
PATIENT ASLEEP. RESPIRATORY EVEN AND UNLABORED. SAFETY MEASURES IN PLACE, BED IN LOW POSITION. URINAL AT BEDSIDE. WILL CONTINUE TO MONITOR.
--- NOTE | 2020-06-23 11:17 | NUR ---
Spoke with manager social services, Robb, per the Public [facility] patient is to transfer to [facility], [place] or [facility] ONLY. [facility] has contacted [facility] [phone] regarding patient. Spoke with Tisha the SMART sheet needs to be filled out and returned and they will submit to Behavioral Health for review. Addendum: 06/23/20 at 1510 by Melody Castrejon CM SMART sheet was faxed to Social [facility]as at [phone]
[2020-06-23] MEDS: GAUZE TP SCH (13:00)
--- NOTE | 2020-06-23 13:43 | NUR ---
06/23/20 RD FOLLOW UP COMPLETED PLEASE REFER TO NUTRITION ASSESSMENT UNDER CARE ACTIVITY FOR ESTIMATED NUTRITIONAL NEEDS. 1. CONTINUE REGULAR DIET TOLERATED 2. RD TO FOLLOW-UP 5-7 DAYS, LOW RISK PRATEEK BERNAL RD
--- NOTE | 2020-06-23 15:26 | NUR ---
PATIENT RESTING IN BED, MUMBLING TO HIMSELF, LAUGH AND YELLING. THEN BECAME QUIET AGAIN. PATIENT IN STABLE CONDITION. SAFETY MEASURES IN PLACE, WILL CONTINUE TO MONITOR.
[2020-06-23 16:00] VITALS: BP 113/75
--- NOTE | 2020-06-23 17:07 | NUR ---
PATIENT LYING IN BED WITH RIGHT LATERAL POSITION, MUMBLING TO HIMSELF. NO ACUTE DISTRESS NOTED AT THIS TIME. WILL CONTINUE TO MONITOR.
--- NOTE | 2020-06-23 18:14 | NUR ---
Called the [facility] head transfer center for follow up on bed, no answer.
--- NOTE | 2020-06-23 19:18 | NUR ---
RECIEVED PT AAO 1 TO 2 MASTURBATING , KEEPS TALKING IRRELEVANTLY TO TOPIC , ALTHOUGH CAN FOLLOW SIMPLE COMMAND . NID - 02 SAT WNL . IV SITE INTACT AND PATENT . DENIES ANY PAIN . W/ L FOOT DRESSING DRY AND INTACT . PER AM NURSDE THE PT IS POSSIBLE FOR TRANSFER TODAY TO [facility] TODAY - THERE IS ALREADY DISCHARGE ORDER .SAFETY MEASURES IN PLACE . PLAN OF CARE DISCUSSED BUT POOR UNDERSTANDING DUE TO MENTAL STATUS . - FOOD SCATTERED OVER THE FLOOR AND ON THE BED - PT IS GRAVELY DISABLED . WILL CONT. TO MONITOR .
--- NOTE | 2020-06-23 19:18 | NUR ---
ENDORSED PATIENT TO TIMBER SPRINKLER RN FOR CONTINUITY OF CARE. PATIENT IN STABLE CONDITION.
--- NOTE | 2020-06-23 20:00 | NUR ---
NURSE FROM [facility] CALL ME - HE ASKING IF THE PT. CAN WALK BY HIMSELF - IF NOT THEY WILL NOT ACCEPT THE PT THE PT . I TOLD HIM FOR THE REST OF MY PREVIOUSLY HANDLED THE PT I DID NOT SAW HIM WALK EVEN WALK TO THE REST ROOM . I REVIEWED THE OTHER NURSE'S NOTE OF MY CO NURSES NO DOCUMENTED THER THAT THE PT WALKED EVEN INSIDE THE ROOM . MOST OF HTE TIME PT LYING OF THE BED EATING ON THE BED PEE ON THE BED . I WILL ASSESS THE PT'S GAIT - AND WILL FOLLOW UP .
--- NOTE | 2020-06-23 20:11 | NUR ---
VISIT THE PT IN THE ROOM TO ASSESS HIS GAIT BUT PT IS MASTURBATING . IT IS NOT SAFE FOR ME TO ASSESS HIM MOST ESPECIALLY HE TRIED TO GRAB MY HANDS . I WILL SENT JUSTYNA BAJWA TO ENCOURAGE PT TO GET UP AND ENCOURAGE TO WALK OR I WILL ASSESS THE PT 'S GAIT WITH THE PRESENT OF OTHERS . - WILL INFORM THE CHARGE NURSE .
--- NOTE | 2020-06-23 22:45 | NUR ---
[facility] CALL ME AGAIN - I SAID TO THE [facility] NURSE I CAN'T ABLE TO ASSESS THE PT'S GAIT BECAUSE OF THESE REASONS : FIRST PT REFUSED TO GET UP . SECOND FOR MY SAFETY I 'M NOT COMFORTABLE TO ASSESS THE PT'S GAIT IN THAT AWKWARD SITUATION - SINCE PT IS SEXUALLY PREVOCATIVE . 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 I TRIED TO ASSESSED PT'S GAIT WITH THE PRESENT OF GARETT BUT PT IS STILL REFUSED TO GET UP . I REVIEWED THE PREVIOUSLY NURSE'S NOTES OF MY CO WORKERS [facility] . THERE IS ONE DOCUMENTATION THAT THE PT . TRANSFERRED TO FLOOR FROM ER PER KATELYN AND PT TRANSFERRED TO BED TO BED AND NOT BY WALKING BUT HIMSELF . ALTHOUGH HE LIFTED HIS BODY TO TRANSFER BED TO BED .WILL ENDORSE . Addendum: 06/24/20 at 0403 by Lucero Carlson RN PER ER DOCUMENTATION / ASSESSMENT ALL EXTREMITIES ARE FULL OF RANGE - BUT ACCORDING TO THE WHOLE COURSE OF CONFINEMENT OF THE PT HERE NO ONE SEEN THE PT AMBULATED . PT PEE . EATS , USES URINAL ON BED SINCE ADM HERE IN [facility] .
--- NOTE | 2020-06-24 | NUR ---
PT KEEPS TOUCHING HIS GENITALS .
--- NOTE | 2020-06-24 02:11 | NUR ---
USES BEDPAN AT THIS TIME , I ASKING HIM WHAT THE REASON YOU HAVE TO USE BEDPAN NOW , THE BATHROOM IS ALMOST A FEW STEP FROM YOUR BED . HE SAID I CAN'T WALK . I 'M ASKING HIM WHAT THE REASON WHY YOU CAN 'T WALK , HE REPLIES I DON'T KNOW . I 'M ASKING HIM ARE YOU IN PAIN ? HE SAID NO . THE [employer] SUPERINTENDENT GARETT IS AT THE BEDSIDE AT THIS TIME .
--- NOTE | 2020-06-24 06:00 | NUR ---
PT AWAKE - PT HAS 2X WATERY STOOL - WILL ENDORSE
--- NOTE | 2020-06-24 07:30 | NUR ---
ENDORSED TO AM SHIFT - PT -STABLE - HAD EPISODE OF DIARRHREA , GAIT ASSESSMENT NOT DONE BEC. PT REFUSED TO GET OUT FORM THE BED
--- NOTE | 2020-06-24 07:31 | NUR ---
RECEIVED ENDORSEMENT FROM LIQUEFIED NATURAL GAS OPERATOR ASLEEP ON BED, NON LABORED BREATHING NOTED. WITH IV CANNULA G 22 AT LEFT FOREARM ON SALINE LOCK NOTED. SAFETY MEASURES IN PLACE AND CONTINUE MONITOR.
[2020-06-24 08:25] LABS: ANION GAP 15.3 (8-16); CARBON DIOXIDE 23.5 mmol/L (21-32); CREATININE 0.7 mg/dL (0.6-1.3); POTASSIUM 3.8 mmol/L (3.5-5.1)
[2020-06-24] MEDS: ENOXAPARIN 40 MG/0.4 ML SYR SUBQ SCH (09:39)
--- NOTE | 2020-06-24 09:47 | NUR ---
COMPLAINED OF MILD LEFT FOOT PAIN, TYLENOL 650MG PO ORDERED PRN AND DUE MEDICATION GIVEN
--- NOTE | 2020-06-24 10:02 | NUR ---
PT CAME AND PATIENT COMPLAINED OF LEFT FOOT PAIN, WILL RESUME THERAPY TOMORROW
--- NOTE | 2020-06-24 12:19 | NUR ---
VITAL SIGNS TAKEN AND RECORDED, STABLE
[2020-06-24] MEDS: GAUZE TP SCH (12:43)
--- NOTE | 2020-06-24 14:20 | NUR ---
DRESSING CHANGED AT LEFT FOOT, NO DRAINAGE NOTED
[2020-06-24 16:00] VITALS: BP 118/70
--- NOTE | 2020-06-24 16:20 | NUR ---
APPARENTLY, LAUGHING, NOT IN DISTRESS NOTED
--- NOTE | 2020-06-24 18:23 | NUR ---
ASLEEP, NOT IN DISTRESS NOTED
--- NOTE | 2020-06-24 19:30 | NUR ---
ENDORSED TO EXECUTIVE CREATIVE DIRECTOR IN STABLE CONDITION FOR CONTINUITY OF CARE
[2020-06-25] VITALS: BP 118/92
--- NOTE | 2020-06-25 07:20 | NUR ---
RECEIVED PT FROM [employer] BUSINESS OBJECTS DEVELOPER RN, PT IS AWAKE AND LYING ON THE BED, CALM, RESPONDS APPROPRIATELY, IV LINE NOTED ON THE RFA G. 22 ON SALINE LOCK, PT IS GRAVELY DISABLED AND ON RA, LEFT FOOT COVERED WITH DRESSING, DRY AND INTACT,NO SIGN OF DISTRESS NOTED AND WILL MONITOR PT.
[2020-06-25 08:00] VITALS: BP 105/67
[2020-06-25] MEDS: ENOXAPARIN 40 MG/0.4 ML SYR SUBQ SCH (09:17)
--- NOTE | 2020-06-25 09:17 | NUR ---
PT WAS GIVEN LOVENOX ON THE RT UA, PT IS CAKLM AND COOPERATED, PARAMETER CHECKED, WILL MONITOR PT.
--- NOTE | 2020-06-25 12:30 | NUR ---
PT WAS SERVED LUNCH AND WAS ASSISTED WITH URINAL.
[2020-06-25] MEDS: GAUZE TP SCH (13:00)
--- NOTE | 2020-06-25 15:16 | NUR ---
CC has received packet.
--- NOTE | 2020-06-25 15:19 | NUR ---
Packet referred to: [facility]
--- NOTE | 2020-06-25 15:30 | NUR ---
PT IS SHOUTING AND IS ASKING FOR SNACK, BECAME CALM WHEN FOOD WAS SERVED.
[2020-06-25 16:00] VITALS: BP 110/68
--- NOTE | 2020-06-25 19:00 | NUR ---
RECEIVED BEDSIDE REPORT FROM DAY SHIFT NURSE. PATIENT IS AWAKE RESPIRATION EVEN UNLABORED ON ROOM AIR. NO DISTRESS NOTED. SKIN IS WARM AND DRY. LEFT FOOT CELLULITIS NOTED. WOUND DRESSING INTACT AND DRY. IV PATENT AND INTACT. SALINE LOCKED. PLAN OF CARE WAS DISCUSSED. ALL SAFETY MEASURES IN PLACE. BED IS AT LOW POSITION. CALL LIGHT WITHIN REACH. WILL CONTINUE TO MONITOR.
--- NOTE | 2020-06-25 19:05 | NUR ---
ENDORSED PT TO BALLISTICS EXPERT FORENSIC NURSEGRETCHEN FOR CONTINUITY OF CARE.
[2020-06-25] MEDS: DIVALPROEX 250 MG TABEC PO SCH (20:35)
[2020-06-25] MEDS: OLANZapine 5 MG TAB PO SCH (20:35)
--- NOTE | 2020-06-25 20:35 | NUR ---
ALL SCHEDULED MEDS WERE GIVEN PER ORDER. WILL CONTINUE TO MONITOR.
--- NOTE | 2020-06-25 21:45 | NUR ---
PATIENT IS SHOUTING ASKING FOR FOOD. FOOD PROVIDED. WILL CONTINUE TO MONITOR.
--- NOTE | 2020-06-26 00:17 | NUR ---
CHECKED PATIENT. PATIENT SLEEPING RESPIRATION EVEN UNLABORED ON ROOM AIR. NO DISTRESS NOTED. WILL CONTINUE TO MONITOR
--- NOTE | 2020-06-26 03:03 | NUR ---
CHECKED PATIENT. PATIENT SLEEPING RESPIRATION EVEN UNLABORED ON ROOM AIR. NO DISTRESS NOTED. WILL CONTINUE TO MONITOR
--- NOTE | 2020-06-26 04:30 | NUR ---
ENDORSED PATIENT TO IDANIA RN FOR CONTINUITY OF CARE. PATIENT IN STABLE CONDITION
--- NOTE | 2020-06-26 04:31 | NUR ---
RECEIVED ENDORSEMENT FROM BRYN GODINEZ. NO SOB, CALL LIGHT WITHIN REACH.
--- NOTE | 2020-06-26 06:51 | NUR ---
CHECKED PT, SLEEPING, RESPIRATION EVEN AND UNLABORED, STABLE, NO DISTRESS, KEPT WARM AND COMFORTABLE, CALL LIGHT WITHIN REACH.
--- NOTE | 2020-06-26 08:04 | NUR ---
REC'D REPORT FROM MATERIAL MOVERS NURSE, PT. ASLEEP, COMFORTABLE. BED LOWEST POSITION.
[2020-06-26] MEDS: OLANZapine 5 MG TAB PO SCH ×2 (08:40→20:05)
[2020-06-26] MEDS: DIVALPROEX 250 MG TABEC PO SCH ×2 (08:40→20:04)
--- NOTE | 2020-06-26 08:40 | NUR ---
SCHEDULED MEDICATIONS GIVEN AND TOLERATED WELL. NO S/S OF RESPIRATORY DISTRESS OR DISCOMFORT NOTED AT THIS TIME. WILL CONTINUE TO MONITOR.
--- NOTE | 2020-06-26 11:00 | NUR ---
PT RESTING IN BED. REQUESTING MORE FOOD. GIVEN AND TOLERATED WELL. NO S/S OF RESPIRATORY DISTRESS OR DISCOMFORT NOTED AT THIS TIME. WILL CONTINUE TO MONITOR.
--- NOTE | 2020-06-26 13:00 | NUR ---
PT RESTING IN BED. PT REQUESTING MORE FOOD. GIVEN AND TOLERATED WELL. NO S/S OF RESPIRATORY DISTRESS OR DISCOMFORT NOTED AT THIS TIME. WILL CONTINUE TO MONITOR.
[2020-06-26] MEDS: GAUZE TP SCH (13:51)
--- NOTE | 2020-06-26 15:00 | NUR ---
PT RESTING IN BED. PT REQUESTING MORE FOOD- GIVEN AND TOLERATED WELL. NO S/S OF RESPIRATORY DISTRESS OR DISCOMFORT NOTED AT THIS TIME. WILL CONTINUE TO MONITOR.
--- NOTE | 2020-06-26 19:10 | NUR ---
RECEIVED BEDSIDE REPORT FROM DAY SHIFT NURSE FOR CONTINUITY OF CARE. PT IS AWAKE AND LAYING IN SUPINE POSITION. A&OX1. ON RA WITH BREATHING UNLABORED. CHEST RISE AND FALL IS SYMMETRICAL. URINAL IS AT THE BEDSIDE. PT IS UNABLE TO AMBULATE, WHEELCHAIR BOUND. FALL PRECAUTIONS IN PLACE. LEFT LEG CELLULITIS WITH GAUZE AND DRESSING IN PLACE. SKIN IS WARM AND DRY. IV IS IN THE RIGHT FOREARM 20 GAUGE SALINE LOCKED. BED IS IN THE LOWEST POSITION AND CALL LIGHT IS WITHIN REACH. PLAN OF CARE DISCUSSED.
--- NOTE | 2020-06-26 20:04 | NUR ---
PT TOOK MEDS WITH WATER. MEDICATION EDUCATION WAS PROVIDED BUT PT IS CONFUSED. LAUGHING SPONTANEOUSLY, A&OX1. NO DISTRESS NOTED. GAUZE AND BANDAGE IN PLACE IN THE LEFT LOWER EXTREMITY WITH NO DRAINAGE. PT IS STABLE AT THIS TIME.
--- NOTE | 2020-06-26 21:25 | NUR ---
Monitoring and assessing for bed placement, no beds at this time will keep facility informed of any updates
--- NOTE | 2020-06-26 22:00 | NUR ---
PT WAS GIVEN WATER AND PUDDING REQUESTED. PT VOIDED IN THE URINAL AND IT WAS EMPTIED, 400 ML. PT IS LAYING IN SUPINE POSITION. IV IS FLUSHED AND PATENT. NO DISTRESS NOTED.
--- NOTE | 2020-06-27 | NUR ---
PT IS AWAKE AND ALERT, YELLING OUT LOUD FOR FOOD. PT WAS GIVEN MORE PUDDING REQUESTED. PT WAS ALSO GIVEN JUICE. BED IS IN THE LOWEST POSITION. ITEMS ARE WITHIN REACH AT THE BEDSIDE TABLE. PT IS STABLE.
--- NOTE | 2020-06-27 02:00 | NUR ---
PT'S SOILED LINENS WERE CHANGED AND PT REPOSITIONED SELF. WATER AND A SANDWICH WAS GIVEN TO THE PT REQUESTED. FALL PRECAUTIONS IN PLACE.
--- NOTE | 2020-06-27 04:00 | NUR ---
ROUNDED ON PT. HE IS ASLEEP IN THE SUPINE POSITION. BREATHING IS UNLABORED. CHEST RISE AND FALL IS SYMMETRICAL. NO DISTRESS NOTED. DRESSING ON THE LEFT LOWER EXTREMITY IS INTACT. WILL CONTINUE TO MONITOR.
--- NOTE | 2020-06-27 07:10 | NUR ---
ENDORSED PT TO DAY SHIFT NURSE FOR CONTINUITY OF CARE. PT IS STABLE AT THIS TIME. NO DISTRESS NOTED. PLAN OF CARE DISCUSSED.
--- NOTE | 2020-06-27 08:45 | NUR ---
PT WAS COOPERATIVE W/ SENIOR WAREHOUSE CLERK AND CONTINUED TO SLEEP IN BED.
[2020-06-27] MEDS: OLANZapine 5 MG TAB PO SCH ×2 (08:51→20:21)
[2020-06-27] MEDS: DIVALPROEX 250 MG TABEC PO SCH ×2 (08:51→20:21)
--- NOTE | 2020-06-27 11:15 | NUR ---
PT C/O NO PAIN OR DISCOMFORT. PT SLEEPING RIGHT RECUMBENT.
[2020-06-27] MEDS: GAUZE TP SCH (12:50)
--- NOTE | 2020-06-27 13:20 | NUR ---
[facility] Still assisting with placement No beds at the following facilities [facility]
--- NOTE | 2020-06-27 13:22 | NUR ---
[facility] will continue looking for placement
--- NOTE | 2020-06-27 13:55 | NUR ---
PT IS SLEEPING AND STATED NO PAIN AT THE MOMENT.
--- NOTE | 2020-06-27 16:17 | NUR ---
PT HAD 1 BM; CLEANED AND CONTINUED TO SLEEP. PT STATES NO PAIN OR DISCOMFORT.
[2020-06-27 16:45] VITALS: BP 110/58
--- NOTE | 2020-06-27 19:00 | NUR ---
PT SLEEPING FLAT ON BED. PT IS STABLE AND WILL ENDORSE CARE TO [facility] RN.
--- NOTE | 2020-06-27 19:20 | NUR ---
RECEIVED PT ON BED SLEEPING, EASILY AROUSABLE, VERBALLY RESPONSIVE AND ABLE TO MAKE NEEDS KNOWN, CALM AND COOPERATIVE, IV LINE SALINE LOCK AND COVERED WITH ROLLED GAUZE, LEFT FOOT CELLULITIS COVERED WITH KERLIX, DRY AND INTACT, WILL MONITOR CLOSELY.
[2020-06-27 20:00] VITALS: BP 108/55
--- NOTE | 2020-06-27 20:25 | NUR ---
PT OCCASIONALLY SHOUTS AND ASKING FOR FOOD, DUE MEDS TAKEN AND TOLERATED WELL, PROVIDED WITH PUDDING AND MILK, CONSUMED 100%, ALL NEEDS ATTENDED.
--- NOTE | 2020-06-28 | NUR ---
PT SLEEPING BUT OCCASIONALLY CALLS OUT FOR FOOD, DENIES ANY PAIN, LEFT FOOT DRESSING DRY AND INTACT, CONTINUE TO MONITOR CLOSELY.
[2020-06-28 04:00] VITALS: BP 110/53
--- NOTE | 2020-06-28 04:00 | NUR ---
PT SLEEPING, EASILY AROUSABLE, VITAL SIGNS STABLE, DENIES ANY PAIN, CALM AND COOPERATIVE, MONITORED CLOSELY.
--- NOTE | 2020-06-28 07:20 | NUR ---
PT SLEEPING, NO DISTRESS NOTED, REPORT GIVEN TO RN NATALIA FOR CONTINUITY OF CARE.
--- NOTE | 2020-06-28 07:30 | NUR ---
RECEIVED PT ON BED AAOX1, TO NAME ONLY, PT IS CONFUSED. PT ABLE TO FOLLOW SIMPLE COMMANDS. NO SOB NOTED. NO C/O PAIN AT THIS TIME. IV TO LEFT FOREARM PATENT AND INTACT. CHEST CLEAR. ABDOMEN SOFT, BOWEL SOUNDS PRESENT. DRESSING TO LT FOOT DRY AND INTACT. NO EDEMA NOTED. BED ON LOW POSITION. WILL CONTINUE TO MONITOR PT.
[2020-06-28 08:00] VITALS: BP 97/51
--- NOTE | 2020-06-28 08:16 | NUR ---
Received report. [facility] still working on placement. No updates from the following faxed facilities: [facility]
[2020-06-28] MEDS: OLANZapine 5 MG TAB PO SCH ×2 (09:35→20:20)
[2020-06-28] MEDS: DIVALPROEX 250 MG TABEC PO SCH ×2 (09:35→20:21)
--- NOTE | 2020-06-28 11:33 | NUR ---
WOUND CARE RE-EVALUATION NOTE: PT . IS ALERT, ABLE TO FOLLOW DIRECTIONS DURING ASSESSMENT, KEEP BED IN LOWEST POSITION. CONTINUE CURRENT TREATMENT -LEFT FOOT DORSAL FOOT CELLULITIS HEALING NO OPEN WOUND, DRY PEELING THIN SCABS TISSUE, NO SWELLING NO REDNESS. -LEFT FIRST DIGIT TOE 0.5X0.5CM BROWN SCAB, TOE NAIL MISSING KARLEY WOUND SKIN INTACT. -5 TOES INTERSPACES DRY AND CLEAN, PEELING DRY SCALY SKIN
--- NOTE | 2020-06-28 12:30 | NUR ---
PT CONSUMED 100% OF BREAKFAST AND LUNCH. FOOD TOLERATED WELL. NO N&V NOTED.
[2020-06-28] MEDS: GAUZE TP SCH (13:00)
--- NOTE | 2020-06-28 13:00 | NUR ---
PER WOUND CARE NURSE TO LEAVE DRY WOUND TO LEFT FOOT OPEN TO AIR.
[2020-06-28 16:00] VITALS: BP 106/59
--- NOTE | 2020-06-28 19:30 | NUR ---
PT RESTING COMFORTABLY. NO SOB NOTED. NO SIGNS OF PAIN AT THIS TIME. WILL ENDORSE TO NEXT SHIFT NURSE FOR CONTINUITY OF CARE.
--- NOTE | 2020-06-28 19:39 | NUR ---
RECEIVED REPORT FROM DAY SHIFT NURSE. PT AWAKE IN BED. AAOX1, ABLE TO FOLLOW SIMPLE COMMANDS. RESPIRATIONS EVEN AND UNLABORED TO ROOM AIR. ABDOMEN SOFT AND NON-TENDER. SKIN IS WARM AND DRY. PT WITH LEFT FOOT CELLULITIS, OPEN TO AIR. NO EDEMA NOTED. IV ACCESS ON LEFT FA G22 PATENT AND INTACT. PT DENIES ANY PAIN OR DISCOMFORT AT THIS TIME. PT KEPT COMFORTABLE. SAFETY MEASURES IN PLACE. CALL LIGHT WITHIN REACH. WILL CONTINUE TO MONITOR.
[2020-06-28 20:00] VITALS: BP 108/66
--- NOTE | 2020-06-28 20:21 | NUR ---
VS STABLE. SCHEDULED MEDS GIVEN. PT DENIES ANY PAIN AT THIS TIME. PT KEPT COMFORTABLE. SAFETY MEASURES IN PLACE. WILL CONTINUE TO MONITOR.
--- NOTE | 2020-06-28 22:11 | NUR ---
PT JUST WOKE UP AND REQUESTING FOR FOOD. SANDWICH AND JELLO PROVIDED. WILL CONTINUE TO MONITOR.
--- NOTE | 2020-06-29 00:15 | NUR ---
PT IN BED SLEEPING. VISIBLE CHEST RISE AND FALL NOTED. NO S/SX OF PAIN OR DISCOMFORT NOTED. PT KEPT COMFORTABLE. SAFETY MEASURES IN PLACE. WILL CONTINUE TO MONITOR.
--- NOTE | 2020-06-29 02:19 | NUR ---
PT ASLEEP. VISIBLE CHEST RISE AND FALL NOTED. PT NOT IN DISTRESS. PT KEPT COMFORTABLE. SAFETY MEASURES IN PLACE. WILL CONTINUE TO MONITOR.
[2020-06-29 04:00] VITALS: BP 97/57
--- NOTE | 2020-06-29 04:21 | NUR ---
VS STABLE. PT IN BED. PT NOT IN DISTRESS. WILL CONTINUE TO MONITOR
--- NOTE | 2020-06-29 07:22 | NUR ---
ENDORSED TO DAY SHIFT NURSE FOR CONTINUITY OF CARE
--- NOTE | 2020-06-29 07:30 | NUR ---
RECEIVED PT ON BED AAOX1, TO NAME ONLY, PT IS CONFUSED. PT ABLE TO FOLLOW SIMPLE COMMANDS. NO SOB NOTED. NO C/O PAIN AT THIS TIME. IV TO LEFT FOREARM PATENT AND INTACT. CHEST CLEAR. ABDOMEN SOFT, BOWEL SOUNDS PRESENT. LEFT FOOT WOUND CLEAN AND DRY, BETADINE PAINT IN PLACE, WOUND OPEN TO AIR. NO EDEMA NOTED. BED ON LOW POSITION. WILL CONTINUE TO MONITOR PT.
[2020-06-29 08:00] VITALS: BP 100/68
[2020-06-29] MEDS: DIVALPROEX 250 MG TABEC PO SCH ×2 (09:32→21:08)
[2020-06-29] MEDS: OLANZapine 5 MG TAB PO SCH ×2 (09:32→21:09)
[2020-06-29] MEDS: ENOXAPARIN 40 MG/0.4 ML SYR SUBQ SCH (09:34)
[2020-06-29] MEDS: GAUZE TP SCH (13:00)
--- NOTE | 2020-06-29 15:33 | NUR ---
[facility] has received referral and is currently in review. Referral has also been faxed to Rob at [facility] for review.
[2020-06-29 16:00] VITALS: BP 120/68
--- NOTE | 2020-06-29 16:00 | NUR ---
PHYSICAL THERAPY ON GOING AT THE BEDSIDE, PT WALKED WITH THE HELP OF A WALKER.
--- NOTE | 2020-06-29 16:38 | NUR ---
PER DIMITRI, [facility] MIGHT TAKE PT. CALLED THE FACILITY, SPOKE WITH ALESSIA-RN, REPORT GIVEN. PER ALESSIA, PT DOES NOT MEET THE CRITERIA. PT N3EED TO BE WALKING WITHOUT ANY DEVICE. JAMEY AVALOS NOTIFIED.
--- NOTE | 2020-06-29 19:15 | NUR ---
PT RESTING. NO SOB NOTED. NO C/O PAIN. WILL ENDORSE TO NEXT SHIFT NURSE FOR CONTINUITY OF CARE.
--- NOTE | 2020-06-29 19:49 | NUR ---
RECEIVED REPORT.PT IS RESTING IN BED. NO S/S OF ANY DISTRESS NOTED.CALL LIGHT IN REACH.WILL CONT.MONITORING.
[2020-06-29 20:00] VITALS: BP 109/62
--- NOTE | 2020-06-29 23:51 | NUR ---
Follow up calls were made to [facility] contracted psych facilities regarding bed placement, currently no bed vacancies at this time. [facility], spoke with Rodney. [facility], spoke with Mireya. [facility], spoke with Marielena. [facility], spoke with Amarjit. [facility], spoke with Robbin. [facility], spoke with Trent. [facility], no answer, no voice mail. Tele unit will be notified if and when a bed becomes available during shift.
[2020-06-30 04:00] VITALS: BP 105/65
--- NOTE | 2020-06-30 07:30 | NUR ---
ENDORSED PT IN STABLE CONDITION TO NATALIA CLEMENTE.
--- NOTE | 2020-06-30 07:35 | NUR ---
RECEIVED REPORT FROM NIGHTSHIFT NURSE. PT RESTING IN BED. ABLE TO MAKE NEEDS KNOWN. RESPIRATIONS EVEN AND UNLABORED WITH NO SOB OR RESPIRATORY DISTRESS. IV SITE IN L HAND 22G IS CLEAN, DRY, AND INTACT. SAFETY MEASURES IN PLACE. WILL CONTINUE TO MONITOR
[2020-06-30 08:00] VITALS: BP 122/59
[2020-06-30] MEDS: ENOXAPARIN 40 MG/0.4 ML SYR SUBQ SCH (08:11)
[2020-06-30] MEDS: OLANZapine 5 MG TAB PO SCH ×2 (08:17→21:00)
[2020-06-30] MEDS: DIVALPROEX 250 MG TABEC PO SCH ×2 (08:18→21:00)
--- NOTE | 2020-06-30 08:21 | NUR ---
ADMINISTERED SCHED MED PRESCRIBED PER MD ORDER. PT TOLERATED WELL. MEDICATION EDUCATION PERFORMED. PT NEEDS MORE REINFORCEMENT. SAFETY MEASURES IN PLACE. WILL CONTINUE TO MONITOR
--- NOTE | 2020-06-30 10:00 | NUR ---
PT RESTING IN BED. ABLE TO MAKE SOME NEEDS KNOWN. RESPIRATIONS EVEN AND UNLABORED WITH NO SOB OR RESPIRATORY DISTRESS. SAFETY MEASURES IN PLACE. WILL CONTINUE TO MONITOR
--- NOTE | 2020-06-30 12:15 | NUR ---
PATIENT EATING LUNCH. NO SIGNS OF DISTRESS NOED. SAFETY MEASURES IN PLACE. WILL CONTINUE TO MONITOR
[2020-06-30] MEDS: GAUZE TP SCH (13:00)
--- NOTE | 2020-06-30 14:20 | NUR ---
PT RESTING IN BED. ABLE TO MAKE NEEDS KNOWN. RESPIRATIONS EVEN AND UNLABORED WITH NO SOB OR RESPIRATORY DISTRESS. SAFETY MEASURES IN PLACE. WILL CONTINUE TO MONITOR
--- NOTE | 2020-06-30 16:06 | NUR ---
HOURLY ROUNDING. PT ASLEEP IN BED. RESPONSIVE TO VERBAL AND TACTILE STIMULI RESPIRATIONS EVEN AND UNLABORED WITH NO SOB OR RESPIRATORY DISTRESS. SAFETY MEASURES IN PLACE. WILL CONTINUE TO MONITOR
--- NOTE | 2020-06-30 18:54 | NUR ---
PT RESTING IN BED AND IS STABLE. WILL ENDORSE TO NIGHTSHIFT
--- NOTE | 2020-07-01 07:25 | NUR ---
RECEIVED PATIENT FROM NIGHT NURSE. PATIENT IN BED AWAKE AND ALERT, RESPONDING TO STAFF. EYES CLOSED. RESP EVEN AND UNLABORED ON ROOM AIR. DENIED OF PAIN AT THIS TIME. ABLE TO MAKE NEEDS KNOWN. PLAN OF CARE DISCUSSED WITH PATIENT. PATIENT VERBALIZED UNDERSTANDING. LFA 22G NOTED WRAPPED IN AVNI BANDAGE. SAFETY MEASURES IN PLACE. WILL CONTINUE TO MONITOR.
[2020-07-01] MEDS: DIVALPROEX 250 MG TABEC PO SCH (08:42)
[2020-07-01] MEDS: OLANZapine 5 MG TAB PO SCH (08:43)
[2020-07-01] MEDS: ENOXAPARIN 40 MG/0.4 ML SYR SUBQ SCH (08:46)
--- NOTE | 2020-07-01 08:53 | NUR ---
MORNING MEDICATIONS GIVEN. PATIENT AWAKE AND ALERT. SITTING BY BEDSIDE EATING BREAKFAST. RESP EVEN AND UNLABORED ON ROOM AIR. DENIED OF PAIN. LEFT LEG NOTED WITH DRY SCABS, NO OPEN AREAS, NO ACTIVE DRAINAGE AT THIS TIME. PATIENT ABLE TO FOLLOW COMMANDS. NO VERBAL OUTBURSTS. PATIENT TALKING AND LAUGHING TO HIMSELF. ABLE TO RESPOND TO STAFF APPROPRIATELY. SAFETY MEASURES IN PLACE. WILL CONTINUE TO MONITOR.
--- NOTE | 2020-07-01 11:32 | NUR ---
PATIENT IN BED, AWAKE AND ALERT. CONFUSION NOTED. PATIENT ABLE TO FOLLOW COMMANDS AND MAKE NEEDS KNOWN. IV ACCESS TO LFA 22G REMOVED. WILL START ANOTHER IV NEEDED. RESP EVEN AND UNLABORED ON ROOM AIR. DENIED OF PAIN AT THIS TIME. WILL CONTINUE TO MONITOR.
[2020-07-01] MEDS: GAUZE TP SCH (13:27)
--- NOTE | 2020-07-01 13:41 | NUR ---
WOUND CARE PROVIDED. PATIENT TOLERATED WELL. PATIENT IN BED AWAKE AND ALERT. TALKING AND LAUGHING TO HIMSELF. PATIENT ABLE TO DIRECT HIS NEEDS TO NURSING STAFF. DENIED OF PAIN AT THIS TIME. CALLED [facility] TO GIVE REPORT, NURSE IS NOT AVAILABLE UNTIL 1400. WILL CALL BACK. SAFETY MEASURES IN PLACE. WILL CONTINUE TO MONITOR.
[2020-07-01 13:45] VITALS: BP 125/68
--- NOTE | 2020-07-01 14:15 | NUR ---
GAVE REPORT TO MARKY AT [facility]. PATIENT WILL BE GOING TO ROOM 126-[address] HAGER. AWAITING TRANSPORT. PATIENT MADE AWARE AND VERBALIZED UNDERSTANDING. [facility] [address] [place] [address]
--- NOTE | 2020-07-01 15:07 | NUR ---
PATIENT LEFT WITH [facility] TO [facility]. PATIENT LEFT IN STABLE CONDITION. DISCHARGE INSTRUCTIONS GIVEN. PATIENT NODDED UNDERSTANDING. PATIENT REFUSED PNEUMO/FLU VACC.
== END 2020-07-01 15:05 | disposition designated cancer center or children's hospital (05) | DRG 383 ==
LOC: MED 00:05 → EDBD 00:05 → MTU 03:31
PROVIDERS: ADMIT Hospitalist; ATTEND Hospitalist
DX: L03.116 Cellulitis of left lower limb (principal); S91.302A Unspecified open wound, left foot, initial encounter; Z68.23 Body mass index [BMI] 23.0-23.9, adult; F12.10 Cannabis abuse, uncomplicated; E44.0 Moderate protein-calorie malnutrition; D72.829 Elevated white blood cell count, unspecified; E88.09 Other disorders of plasma-protein metabolism, not elsewhere classified; W18.39XA Other fall on same level, initial encounter; Y93.89 Activity, other specified; Y92.89 Other specified places as the place of occurrence of the external cause; Y99.8 Other external cause status
CPT/HCPCS: 36415; 70450; 73630; 80048; 80053; 80202; 80305; 81001; 85025; 87081; 93005; 96365; 96367; 97112; 97116; 97161-GP; 97530; 99285; G0480; G0482; J0696; J1650; J2543; J3370; J7030; J7042; J7060